=== PATIENT | female | born 1970 | race Caucasian/White ===

== ENCOUNTER 2016-09-24 21:28 | Observation (INO) | payer BC ==
[2016-09-24] MEDS ORDERED: Pepcid 20 MG VIAL IV ONE ×2 (21:52→22:09)
[2016-09-24] MEDS ORDERED: BABY ASPIRIN 81 MG CHEW PO ONE (21:52)
[2016-09-24] MEDS ORDERED: LOPRESSOR 5 MG/5 ML INJECTION IV ONE ×2 (21:52→22:09)
--- NOTE | 2016-09-24 21:56 | ERPHSYRPT ---
- History of Present Illness Time Seen by Provider: 09/24/16 21:40 Historian: patient Patient Subjective Stated Complaint: CP intermittently for awhile, worse tonight. Under left breast and left side of chest. Pt rates pain 10/10. Pt describes as sharp. Pt sts nausea with pain. Sts intermittent shortness of breath. Pt sts hot flashes. Denies dizziness, weakness. Sts recent sinus infection. Triage Nursing Assessment: Pt alert, oriented, answers all questions appropriately. Skin p/w/d, resps non-labored. Pt ambulatory to tx room, steady gait noted. Lung sounds CTA bilat, non-labored. Pt heart RRR, S1 S2 noted. No murmur, rub, or gallops noted. Physician History: CC: chest pain Hx: 46 y/o patient of Dr Marcos with hx of intermittent chest pains. She has had stress tests without evidence of cause. Scheduled for monitor. Today the chest pain is more frequent and last many minutes and was more severe. She came to ER. Sometimes nausea and short of breath during pain. Pain now better. No cough or fever. LMP 2 weeks ago. She takes HCTz and metoprolol every AM. Timing/Duration: intermittent Location: substernal (left chest) Severity of Pain-Max: moderate Severity of Pain-Current: none Aspirin Treatment Today: 81 mg x 1, provided by ED Allergies/Adverse Reactions: tramadol Allergy (Intermediate, Verified 09/24/16 21:35) Itching Home Medications: Metoprolol Tartrate 25 mg [Lopressor 25MG Tab] 25 mg PO DAILY 01/17/15 [ History] Omeprazole 20 MG [Prilosec 20 mg] 40 mg PO DAILY 01/17/15 [History] Potassium Chloride 20 Meq [Klor-Con 20 MEQ] 40 meq PO DAILY 07/27/15 [History] Aspirin 81 mg PO DAILY 01/25/16 [History] Naproxen 500 mg PO BID 09/24/16 [History] Hx Tetanus, Diphtheria Vaccination/Date Given: No Hx Influenza Vaccination/Date Given: No Hx Pneumococcal Vaccination/Date Given: No Immunizations Up to Date: No - Review of Systems Constitutional: No Fever, No Chills Eyes: No Symptoms Ears, Nose, & Throat: No Symptoms Respiratory: No Cough, No Dyspnea Cardiac: Chest Pain, No Edema, No Palpitations, No Syncope Abdominal/Gastrointestinal: Nausea, No Abdominal Pain, No Vomiting, No Diarrhea Genitourinary Symptoms: No Symptoms Musculoskeletal: No Symptoms Skin: No Symptoms Neurological: No Symptoms All Other Systems: Reviewed and Negative - Past Medical History Pertinent Past Medical History: Yes Neurological History: No Pertinent History ENT History: No Pertinent History Cardiac History: Hypertension Respiratory History: No Pertinent History Endocrine Medical History: Other Musculoskeletal History: No Pertinent History GI Medical History: GERD, Irritable Bowel History: Other Psycho-Social History: No Pertinent History Female Reproductive Disorders: No Pertinent History Other Medical History: herniated disc lower back - Past Surgical History Past Surgical History: Yes Neuro Surgical History: No Pertinent History Cardiac: No Pertinent History Respiratory: No Pertinent History Gastrointestinal: Cholecystectomy Genitourinary: No Pertinent History Musculoskeletal: No Pertinent History Female Surgical History: Section, Tubal Ligation - Social History Smoking Status: Never smoker Exposure to second hand smoke: No Drug Use: none 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) Significant Family History: heart disease (father) - Female History Hx Last Menstrual Period: 2 weeks ago Hx Now: No - Nursing Vital Signs Temperature: 98.5 F Temperature Source: Oral Pulse Rate: 93 Respiratory Rate: 18 Blood Pressure: 165/109 Pain Intensity: 10 - Physical Exam General Appearance: alert Eye Exam: PERRL/EOMI Ears, Nose, Throat Exam: normal ENT inspection, moist mucous membranes Neck Exam: normal inspection, non-tender, supple Respiratory Exam: normal breath sounds, lungs clear Cardiovascular Exam: regular rate/rhythm, No murmur Gastrointestinal/Abdomen Exam: soft, No tenderness, No distention Back Exam: normal inspection, normal range of motion Extremity Exam: normal inspection, normal range of motion Neurologic Exam: alert, oriented x 3, cooperative, sensation nml, No motor deficits Skin Exam: warm, dry, No rash SpO2 Interpretation: normal SpO2: 96 Oxygen Delivery: Room Air - Course Nursing assessment & vital signs reviewed: Yes EKG Interpreted by Me: RATE (80), Sinus Rhythm, NORMAL AXIS, NORMAL INTERVALS, NORMAL QRS, Non-specific ST Changes (unchanged from prior tracing) - Radiology Exams cxr X-ray Interpretation: Interpreted by me, Reviewed by me (CM, poor inspiration, no acute) Ordered Tests: Active Orders 24 hr Category Date Time Status Nanotechnician STAT Care 09/24/16 21:52 Active EKG-ER Only STAT Care 09/24/16 21:49 Active EKG-ER Only STAT Care 09/24/16 22:14 Active IV Insertion STAT Care 09/24/16 21:49 Active Pulse Oximetry (ED) STAT Care 09/24/16 21:52 Active CHEST 1 VIEW (PORTABLE) Stat Exams 09/24/16 21:52 Taken CBC W DIFF Stat Lab 09/24/16 21:57 Completed CMP Stat Lab 09/24/16 21:57 Completed D-DIMER QUANTITATION Stat Lab 09/24/16 21:57 Completed HCG QUALITATIVE,SERUM Stat Lab 09/24/16 21:57 Completed TROPONIN Q3H Lab 09/24/16 21:57 Completed TROPONIN Q3H Lab 09/25/16 01:00 Ordered TROPONIN Q3H Lab 09/25/16 04:00 Ordered TROPONIN Q3H Lab 09/25/16 07:00 Ordered TROPONIN Q3H Lab 09/25/16 10:00 Ordered Medication Summary Generic Name Dose Route Start Last Admin Trade Name Freq PRN Reason Stop Dose Admin Sodium Chloride 1,000 mls @ 100 mls/hr 09/24/16 22:00 09/24/16 22:14 Sodium Chloride 0.9% 1000 Ml IV 10/24/16 21:59 100 mls/hr .Q10H REYNA Administration Discontinued Medications Generic Name Dose Route Start Last Admin Trade Name Freq PRN Reason Stop Dose Admin Aspirin 81 mg 09/24/16 21:52 09/24/16 22:17 Baby Aspirin 81 Mg Chew PO 09/24/16 21:53 81 mg STAT ONE Administration Aspirin Confirm 09/24/16 22:09 Baby Aspirin 81 Mg Chew Administered 09/24/16 22:10 Dose 81 mg .ROUTE .STK-MED ONE Famotidine 20 mg 09/24/16 21:52 09/24/16 22:18 Pepcid 20 Mg Vial IV 09/24/16 21:53 20 mg STAT ONE Administration Famotidine Confirm 09/24/16 22:09 Pepcid 20 Mg Vial Administered 09/24/16 22:10 Dose 20 mg IV .STK-MED ONE Sodium Chloride Confirm 09/24/16 22:09 Sodium Chloride 0.9% 1000 Ml Administered 09/24/16 22:10 Dose 1,000 mls @ ud .ROUTE .STK-MED ONE Metoprolol Tartrate 5 mg 09/24/16 21:52 09/24/16 22:20 Lopressor 5 Mg/5 Ml Injection IV 09/24/16 21:53 5 mg STAT ONE Administration Metoprolol Tartrate Confirm 09/24/16 22:09 Lopressor 5 Mg/5 Ml Injection Administered 09/24/16 22:10 Dose 5 mg IV .STK-MED ONE Nitroglycerin 1 gm 09/24/16 22:14 09/24/16 22:24 Nitro-Bid 2% Ud Packets TOP 09/24/16 22:15 1 gm STAT ONE Administration Nitroglycerin Confirm 09/24/16 22:23 Nitro-Bid 2% Ud Packets Administered 09/24/16 22:24 Dose 1 gm .ROUTE .STK-MED ONE Lab/Rad Data: Laboratory Result Diagrams 09/24/16 21:57 09/24/16 21:57 Laboratory Results 09/24/16 09/24/16 09/24/16 Range/Units 21:57 21:57 21:57 WBC (4.0-10.5) K/mm3 RBC (4.1-5.4) M/mm3 Hgb (12.0-16.0) gm/dl Hct (35-47) % MCV (78-100) fl MCH (26-32) pg MCHC (32-36) g/dl RDW (11.5-14.0) % Plt Count (150-450) K/mm3 MPV (6-9.5) fl Gran % (36.0-66.0) % Lymphocytes % (24.0-44.0) % Monocytes % (0.0-12.0) % Eosinophils % (0.00-5.0) % Basophils % (0.0-0.4) % Basophils # (0-0.4) D-Dimer 0.250 (0.00-0.49) mg/L Sodium (136-145) mEq/L Potassium (3.5-5.1) mEq/L Chloride (98-107) mEq/L Carbon Dioxide (21-32) mEq/L Anion Gap (5-15) MEQ/L BUN (9-20) mg/dL Creatinine (0.55-1.30) mg/dl Estimated GFR ML/MIN Glucose (70-110) MG/DL Calcium (8.5-10.1) mg/dL Total Bilirubin (0.2-1.0) mg/dL AST (15-37) U/L ALT (12-78) U/L Alkaline Phosphatase (46-116) U/L Troponin I < 0.017 (0.000-0.056) ng/ml Serum Total Protein (6.4-8.2) gm/dL Albumin (3.4-5.0) g/dL Serum , Qual NEGATIVE (Negative) 09/24/16 09/24/16 Range/Units 21:57 21:57 WBC 14.7 H (4.0-10.5) K/mm3 RBC 5.13 (4.1-5.4) M/mm3 Hgb 14.1 (12.0-16.0) gm/dl Hct 42.3 (35-47) % MCV 82.5 (78-100) fl MCH 27.5 (26-32) pg MCHC 33.3 (32-36) g/dl RDW 13.4 (11.5-14.0) % Plt Count 403 (150-450) K/mm3 MPV 11.2 H (6-9.5) fl Gran % 61.9 (36.0-66.0) % Lymphocytes % 30.1 (24.0-44.0) % Monocytes % 6.8 (0.0-12.0) % Eosinophils % 0.8 (0.00-5.0) % Basophils % 0.4 (0.0-0.4) % Basophils # 0.06 (0-0.4) D-Dimer (0.00-0.49) mg/L Sodium 138 (136-145) mEq/L Potassium 3.1 L (3.5-5.1) mEq/L Chloride 100 (98-107) mEq/L Carbon Dioxide 29.7 (21-32) mEq/L Anion Gap 11.2 (5-15) MEQ/L BUN 14 (9-20) mg/dL Creatinine 1.22 (0.55-1.30) mg/dl Estimated GFR 50 ML/MIN Glucose 113 H (70-110) MG/DL Calcium 9.0 (8.5-10.1) mg/dL Total Bilirubin 0.3 (0.2-1.0) mg/dL AST 20 (15-37) U/L ALT 27 (12-78) U/L Alkaline Phosphatase 91 (46-116) U/L Troponin I (0.000-0.056) ng/ml Serum Total Protein 7.8 (6.4-8.2) gm/dL Albumin 3.4 (3.4-5.0) g/dL Serum , Qual (Negative) - Progress Progress Note: 09/24/16 22:49 Pt initially had no pain then had level 9 pain. REpeat EKG with minimal changes. Troponin negative. ASA and NTG paste given. BP better so metoprolol not yet given. 09/24/16 22:54 Pain better now. NTG paste on. ?coronary spasms. Called Dr Juarez. Will place in chest pain obs for serial troponin and further care. Counseled pt/family regarding: lab results, diagnosis, need for follow-up, rad results - Departure Time of Disposition: 22:54 Departure Disposition: Observation Clinical Impression: Chest pain, rule out acute myocardial infarction Condition: Stable Critical Care Time: No Referrals: GWYN JUAREZ MD [Primary Care Provider] - Instructions: Atypical Chest Pain
[2016-09-24] MEDS ORDERED: Sodium Chloride 0.9% 1000 ML 1,000 ML IV SCH (22:00)
[2016-09-24 22:02] LABS: BASOPHIL % 0.4 % (0.0-0.4); Eosinophil % 0.8 % (0.00-5.0); Granulocytes % 61.9 % (36.0-66.0); Lymphocytes % 30.1 % (24.0-44.0); Mean Cell Volume 82.5 fl (78-100); Mean Corpuscular Hemoglobin 27.5 pg (26-32); Mean Platelet Volume 11.2 fl (6-9.5); Monocytes % 6.8 % (0.0-12.0); Platelet Count 403 K/mm3 (150-450); Red Blood Count 5.13 M/mm3 (4.1-5.4); Red Cell Distribution Width 13.4 % (11.5-14.0); White Blood Count 14.7 K/mm3 (4.0-10.5)
[2016-09-24] MEDS ORDERED: Sodium Chloride 0.9% 1000 ML 1,000 ML ONE (22:09)
[2016-09-24] MEDS ORDERED: BABY ASPIRIN 81 MG CHEW ONE (22:09)
[2016-09-24] MEDS ORDERED: NITRO-BID 2% UD PACKETS TOP ONE (22:14)
[2016-09-24 22:21] LABS: ALBUMIN 3.4 g/dL (3.4-5.0); ANION GAP 11.2 MEQ/L (5-15); BILIRUBIN,TOTAL 0.3 mg/dL (0.2-1.0); Carbon Dioxide 29.7 mEq/L (21-32); Potassium 3.1 mEq/L (3.5-5.1); Total Protein 7.8 gm/dL (6.4-8.2)
[2016-09-24] MEDS ORDERED: NITRO-BID 2% UD PACKETS ONE (22:23)
[2016-09-24] MEDS ORDERED: MAALOX ES 30 ML UNIT DOSE PO PRN (23:25)
[2016-09-24] MEDS ORDERED: Senokot-S Tablet PO PRN (23:25)
[2016-09-24] MEDS ORDERED: MILK OF MAGNESIA 30 ML PO PRN (23:25)
[2016-09-24] MEDS ORDERED: Zofran 4 MG/2 ML VIAL IV PRN (23:25)
[2016-09-24] MEDS: D5w/0.45NS W/ 40MEQ KCl 1000 Ml 1,000 ML IV SCH (23:42)
[2016-09-25] MEDS: TYLENOL 325 MG PO PRN ×3 (03:50→14:48)
[2016-09-25] MEDS: NITRO-BID 2% UD PACKETS TOP SCH ×2 (05:59→14:45)
[2016-09-25] MEDS: D5w/0.45NS W/ 40MEQ KCl 1000 Ml 1,000 ML IV SCH ×2 (08:02→16:18)
--- NOTE | 2016-09-25 08:17 | PCM.HP ---
History of Present Illness - Chief Complaint Chief Complaint: CHEST PAIN R/O History of Present Illness: is a 46 year old female who has had recurrent chest pain for the last 2 months. She is currently seeing Dr Canas and actually has a followup visit scheduled in 2 days. She has recrurrent sharp substernal chest pain, there is no change with a cough or deep breath. She experiences nausea and diaphoresis, she has these nearly every day but last night the pain was much more intense so she came to the ER. She does take naproxen regularly for her back and is also on omeprazole. She had a negative stress test last month. - Review of Systems Constitutional: No Fever, No Chills Respiratory: No Cough, No Short Of Breath Cardiac: Chest Pain Abdominal/Gastrointestinal: No Abdominal Pain, No Nausea, No Vomiting, No Diarrhea Skin: No Rash All Other Systems: Reviewed and Negative Medications & Allergies Home Medications: Home Medication List Hydrochlorothiazide 25 mg [hydroDIURIL 25 MG] 25 mg PO DAILY #0 tablet [Rx Confirmed 09/24/16] Metoprolol Tartrate 25 mg [Lopressor 25MG Tab] 25 mg PO DAILY 01/17/15 [ History Confirmed 09/24/16] Omeprazole 20 MG [Prilosec 20 mg] 40 mg PO DAILY 01/17/15 [History Confirmed 11/09] Potassium Chloride 20 Meq [Klor-Con 20 MEQ] 40 meq PO DAILY 07/27/15 [History Confirmed 09/24/16] Aspirin 81 mg PO DAILY 01/25/16 [History Confirmed 09/24/16] Naproxen 500 mg PO BID 09/24/16 [History Confirmed 09/24/16] Allergies/Adverse Reactions: Allergies Allergy/AdvReac Type Severity Reaction Status Date / Time tramadol Allergy Intermediate Itching Verified 09/24/16 21:35 - Past Medical History Past Medical History: Yes Neurological History: No Pertinent History, Other ENT History: No Pertinent History Cardiac History: Angina, Hypertension Respiratory History: No Pertinent History Endocrine Medical History: Other Musculoskelatal History: No Pertinent History GI Medical History: GERD History: Other Pyscho-Social History: No Pertinent History Reproductive Disorders: No Pertinent History Comment: herniated disc lower back, steroid epidural inj for back pain - Female History Hx Last Menstrual Period: 2 weeks ago Are you now?: No - Past Surgical History Past Surgical History: Yes Neuro Surgical History: No Pertinent History Cardiac History: No Pertinent History Respiratory Surgery: No Pertinent History GI Surgical History: Cholecystectomy Genitourinary Surgical Hx: No Pertinent History Musculskeletal Surgical Hx: No Pertinent History Female Surgical History: Section, Tubal Ligation - Social History Smoking Status: Never smoker Exposure to second hand smoke: No Alcohol: None Drug Use: none Significant Family History: heart disease (father) - Physical Exam Vital Signs: Vital Signs - 24 hr Temp Pulse Resp BP BP Pulse Ox 09/25/16 07:05 98.0 F 75 18 155/85 97 09/25/16 04:00 97.8 F 73 18 115/58 96 09/24/16 23:54 98.0 F 81 20 171/97 95 09/24/16 22:57 78 16 145/97 96 09/24/16 22:55 98.5 F 93 H 18 165/109 96 09/24/16 22:21 78 16 150/98 98 09/24/16 22:07 97 09/24/16 21:39 98.5 F 93 H 18 165/109 96 General Appearance: no apparent distress, alert Neurologic Exam: alert, oriented x 3, cooperative, normal mood/affect, nml cerebellar function, nml station & gait, sensation nml, No motor deficits Eye Exam: PERRL/EOMI, eyes nml inspection Respiratory Exam: normal breath sounds, lungs clear, No respiratory distress Cardiovascular Exam: regular rate/rhythm, normal heart sounds, normal peripheral pulses Gastrointestinal/Abdomen Exam: soft, normal bowel sounds, No tenderness, No mass Extremity Exam: normal inspection, normal range of motion, pelvis stable Skin Exam: normal color, warm, dry, No rash Results - Labs Lab/Micro Results: Lab Results-Last 24 Hours 09/25/16 09/25/16 09/25/16 Range/Units 01:15 03:47 06:30 Troponin I < 0.017 < 0.017 < 0.017 (0.000-0.056) ng/ml Triglycerides (30-200) mg/dL Cholesterol (100-200) mg/dL LDL Cholesterol (5-99) mg/dL HDL Cholesterol (35-60) mg/dL Heart Disease Risk Ratio 09/25/16 Range/Units 06:30 Troponin I (0.000-0.056) ng/ml Triglycerides 165 (30-200) mg/dL Cholesterol 187 (100-200) mg/dL LDL Cholesterol 107 H (5-99) mg/dL HDL Cholesterol 60 (35-60) mg/dL Heart Disease Risk Ratio 3.1 - Other Procedures and Tests Respiratory Therapy 09/26/16 05:00 EKG ROUTINE 09/27/16 05:00 EKG ROUTINE 09/28/16 05:00 EKG ROUTINE Assessment/Plan (1) Chest pain Current Visit: No Status: Acute Assessment & Plan: cardiac enzymes are negative thus far, doesn't sound cardiac but has some worrisome features. will consult [facility] for further recommendations if rules out. certainly has improved her pain with nitro in ER and with nitro patch there has been much less intense pain when she has these bouts overnight Code(s): R07.9 - CHEST PAIN, UNSPECIFIED (2) GERD (gastroesophageal reflux disease) Current Visit: No Status: Acute Code(s): K21.9 - GASTRO-ESOPHAGEAL REFLUX DISEASE WITHOUT ESOPHAGITIS (3) Hypokalemia Current Visit: No Status: Acute Assessment & Plan: replacing her potassium in IV fluids at this time, will repeat mg and K level with last troponin Code(s): E87.6 - HYPOKALEMIA
--- NOTE | 2016-09-25 08:39 | XRAY ---
Indication: Chest pain and short of breath. Comparison: January 02, 2016 Portable chest remains slightly underinflated accentuating the cardiopulmonary structures. No focal infiltrate, consolidation, or large effusion. Heart is not enlarged for AP portable technique. Bony thorax intact. Impression: Stable nonacute underinflated chest.
[2016-09-25] MEDS ORDERED: Pepcid 20 MG VIAL IV SCH (10:00)
[2016-09-25] MEDS ORDERED: NON-FORMULARY ITEM (Potassium Chloride 20 Meq [Klor-Con 20 Meq] 40 MEQ) PO SCH (10:00)
[2016-09-25] MEDS ORDERED: Ecotrin 325 MG PO SCH (10:00)
[2016-09-25] MEDS ORDERED: ECOTRIN 81 MG PO SCH (10:00)
[2016-09-25] MEDS ORDERED: hydroDIURIL 25 MG PO SCH (10:00)
[2016-09-25] MEDS ORDERED: Klor Con 10 MEQ PO SCH (10:00)
[2016-09-25] MEDS ORDERED: Lopressor 25MG Tab PO SCH (10:00)
[2016-09-25] MEDS ORDERED: NON-FORMULARY ITEM (Omeprazole 20 Mg [Prilosec 20 Mg] 40 MG) PO SCH (10:00)
[2016-09-25] MEDS ORDERED: Protonix 40MG Tablet PO SCH (10:00)
[2016-09-25 10:58] LABS: BLOOD UREA NITROGEN 22 mg/dL (9-20); CHLORIDE 106 mEq/L (98-107); Carbon Dioxide 27.7 mEq/L (21-32); Glucose 120 MG/DL (70-110); MAGNESIUM 2.1 mg/dL (1.8-2.4); SODIUM 143 mEq/L (136-145)
[2016-09-25 16:08] VITALS: BP 125/79; PULSE 72; O2SAT 97
== END 2016-09-25 19:02 | disposition home or self-care (01) ==
LOC: ED 21:28 → MED SURG 23:08
PROVIDERS: ADMIT Family Medicine; ATTEND Family Medicine
DX: R07.9 Chest pain, unspecified (principal); K21.9 Gastro-esophageal reflux disease without esophagitis; E87.6 Hypokalemia; I10 Essential (primary) hypertension
CPT/HCPCS: 36000; 36415; 71010; 80048; 80053; 80061; 83721; 83735; 84484; 84703; 85025; 85379; 93005; 93041; 93268; 94760; 96360; 99284; G0378; J2405; Q3014

== ENCOUNTER 2017-03-15 07:52 | Emergency (ER) | payer BC ==
[2017-03-15] MEDS ORDERED: BABY ASPIRIN 81 MG CHEW PO ONE (08:10)
[2017-03-15] MEDS ORDERED: BABY ASPIRIN 81 MG CHEW ONE (08:13)
--- NOTE | 2017-03-15 08:18 | ERPHSYRPT ---
- History of Present Illness Time Seen by Provider: 03/15/17 08:02 Historian: patient Exam Limitations: no limitations Patient Subjective Stated Complaint: PT REPORTS NONRADIATING CHEST PAIN BEGINNING JAY 3 DAYS AGO-DENIES SOB-DENIES COUGH-STATES SHE HAS HAD SIMILAR EPISODES IN THE PAST Triage Nursing Assessment: PT PINK WARM ET [id number] EASY ET NONLABORED- RIGHT RADIAL PULSE REGULAR ET STRONG-CAP REFILL 3 SECONDS Physician History: 47-year-old white female who has been seen in the past secondary to chest pain and states she has had a normal catheterization in November arrives with complaint of intermittent chest pain located inferior to her left breast described as sharp lasting a few minutes going off-and-on for last 2-3 days she states she hasn't last night at 11:00 it went away then this morning at 6:00 he began pain is described as sharp underneath her left breast radiating to her back not associated with movement or deep breathing she stated that she had some nausea associated with this no shortness of breath. She took 1 baby aspirin at home. Past medical history includes GERD, irritable bowel, herniated disc, high blood pressure/ Past surgical history includes cardiac catheter cholecystectomy tubal ligation. Timing/Duration: other (symptoms for 2-3 days intermittently occured last pm at 11:00 p.m., went away came back this morning at 6 AM) Quality: sharpness Location: other (left chest radiating to back) Severity of Pain-Max: moderate Severity of Pain-Current: mild Modifying Factors: Improves With: nothing Associated Symptoms: nausea, No vomiting, No palpitations, No heartburn, No abdominal pain, No shortness of breath, No cough, No hurts to breathe, No diaphoresis, No chills, No fever, No fatigue, No weakness, No swelling/lump in chest, No syncope, No rash, No headache, No dizziness, No edema, No back pain Prior Chest Pain/Cardiac Workup: cardiac cath (patient with normal cardiac catheterization in November 2016) Nitro Today/Relief: no nitro taken today Aspirin Treatment Today: 81 mg x 1 (81 mg at home), 81 mg x 3 (243 mg in the ER) , provided at home, provided by ED Allergies/Adverse Reactions: tramadol Allergy (Intermediate, Verified 03/15/17 07:59) Itching Home Medications: Metoprolol Tartrate 25 mg [Lopressor 25MG Tab] 25 mg PO DAILY 01/17/15 [ History] Omeprazole 20 MG [Prilosec 20 mg] 40 mg PO DAILY 01/17/15 [History] Potassium Chloride 20 Meq [Klor-Con 20 MEQ] 40 meq PO DAILY 07/27/15 [History] Aspirin 81 mg PO DAILY 01/25/16 [History] Naproxen 500 mg PO BID 09/24/16 [History] Amlodipine Besylate [Norvasc] 2.5 mg PO DAILY 03/15/17 [History] Hx Tetanus, Diphtheria Vaccination/Date Given: No Hx Influenza Vaccination/Date Given: No Hx Pneumococcal Vaccination/Date Given: No Immunizations Up to Date: Yes - Review of Systems Constitutional: No Fever, No Chills Eyes: No Symptoms Ears, Nose, & Throat: No Symptoms Respiratory: No Cough, No Dyspnea Cardiac: Chest Pain Abdominal/Gastrointestinal: Nausea, No Abdominal Pain, No Vomiting, No Diarrhea , No Constipation, No Hematemesis, No Hematochezia, No Melena, No Dysphagia, No Appetite Changes Genitourinary Symptoms: No Dysuria Musculoskeletal: No Back Pain, No Neck Pain Skin: No Rash Neurological: No Dizziness, No Focal Weakness, No Sensory Changes Psychological: No Symptoms Endocrine: No Symptoms All Other Systems: Reviewed and Negative - Past Medical History Pertinent Past Medical History: Yes Neurological History: No Pertinent History, Other ENT History: No Pertinent History Cardiac History: Angina, Hypertension Respiratory History: No Pertinent History Endocrine Medical History: Other Musculoskeletal History: No Pertinent History GI Medical History: GERD History: Other Psycho-Social History: No Pertinent History Female Reproductive Disorders: No Pertinent History Other Medical History: herniated disc lower back, steroid epidural inj for back pain - Past Surgical History Past Surgical History: Yes Neuro Surgical History: No Pertinent History Cardiac: Cardiac Catheterization Respiratory: No Pertinent History Gastrointestinal: Cholecystectomy Genitourinary: No Pertinent History Musculoskeletal: No Pertinent History Female Surgical History: Section, Tubal Ligation - Social History Smoking Status: Never smoker Exposure to second hand smoke: No Drug Use: none Patient Lives Alone: No Significant Family History: heart disease (father) - Female History Hx Now: No - Nursing Vital Signs Nursing Vital Signs: Initial Vital Signs Temperature 98.8 F Temperature Source Oral Pulse Rate [] 90 Pulse Rate 74 Respiratory Rate 18 Blood Pressure [] 134/91 Pain Intensity 8 - Physical Exam General Appearance: no apparent distress, alert Eye Exam: PERRL/EOMI, eyes nml inspection Ears, Nose, Throat Exam: normal ENT inspection, moist mucous membranes Neck Exam: normal inspection, non-tender, supple, full range of motion Respiratory Exam: normal breath sounds, lungs clear, No respiratory distress Cardiovascular Exam: regular rate/rhythm, normal heart sounds Gastrointestinal/Abdomen Exam: soft, No tenderness, No mass Back Exam: normal inspection, No CVA tenderness, No vertebral tenderness Extremity Exam: normal inspection, normal range of motion Neurologic Exam: alert, oriented x 3, cooperative, normal mood/affect, sensation nml, No motor deficits Skin Exam: normal color, warm, dry SpO2 Interpretation: normal (97%) SpO2: 97 Oxygen Delivery: Room Air - Course Nursing assessment & vital signs reviewed: Yes EKG Interpreted by Me: RATE (68 bpm), Sinus Rhythm, Other (EKG sinus rhythm, 68 bpm, axisSI/QIII pattern, Q waves in lead 3, no acute ST or T wave changes noted , no acute changes as compared to September 25, 2016) - Radiology Exams Chest X-ray Interpretation: Reviewed by me, Other (chest x-ray:impression: 1. Mildly hypoinflated chest with chronic mild elevation/eventration of the right hemidiaphragm . 2. Focal bronchovascula lung markings crowding versus minimal atelectasis within the right infrahilar projection, apparently due to the underinflated chest and mild elevation of the right hemidiaphragm on this side 3. No airspace infiltrates or other acute cardiopulmonary disease is seen.) Ordered Tests: Active Orders 24 hr Category Date Time Status Barrel Turner STAT Care 03/15/17 08:10 Active EKG-ER Only STAT Care 03/15/17 08:10 Active EKG-ER Only STAT Care 03/15/17 10:28 Active IV Insertion STAT Care 03/15/17 08:10 Active Pulse Oximetry (ED) STAT Care 03/15/17 08:10 Active CHEST 1 VIEW (PORTABLE) Stat Exams 03/15/17 08:10 Completed AMYLASE Stat Lab 03/15/17 08:00 Completed CBC W DIFF Stat Lab 03/15/17 08:00 Completed CMP Stat Lab 03/15/17 08:00 Completed D-DIMER QUANTITATION Stat Lab 03/15/17 08:00 Completed LIPASE Stat Lab 03/15/17 08:00 Completed TROPONIN Q3H Lab 03/15/17 08:00 Completed TROPONIN Q3H Lab 03/15/17 11:10 Completed TROPONIN Q3H Lab 03/15/17 14:15 Ordered TROPONIN Q3H Lab 03/15/17 17:15 Ordered TROPONIN Q3H Lab 03/15/17 20:15 Ordered Medication Summary Discontinued Medications Generic Name Dose Route Start Last Admin Trade Name Jemq PRN Reason Stop Dose Admin Aspirin 243 mg 03/15/17 08:10 03/15/17 08:14 Baby Aspirin 81 Mg Chew PO 03/15/17 08:11 243 mg STAT ONE Administration Aspirin Confirm 03/15/17 08:13 Baby Aspirin 81 Mg Chew Administered 03/15/17 08:14 Dose 243 mg .ROUTE .STK-MED ONE Morphine Sulfate 4 mg 03/15/17 10:02 03/15/17 10:05 Morphine Sulfate 4 Mg Inj IV 03/15/17 10:03 4 mg STAT ONE Administration Morphine Sulfate Confirm 03/15/17 10:04 Morphine Sulfate 4 Mg Inj Administered 03/15/17 10:05 Dose 4 mg .ROUTE .STK-MED ONE Ondansetron HCl Confirm 03/15/17 08:49 Zofran 4 Mg/2 Ml Vial Administered 03/15/17 08:50 Dose 4 mg .ROUTE .STK-MED ONE Ondansetron HCl 4 mg 03/15/17 09:07 03/15/17 09:07 Zofran 4 Mg/2 Ml Vial IV 03/15/17 09:08 4 mg STAT ONE Administration Potassium Chloride 40 meq 03/15/17 09:04 03/15/17 09:09 Klor Con 10 Meq PO 03/15/17 09:05 40 meq STAT ONE Administration Potassium Chloride Confirm 03/15/17 09:09 Klor Con 10 Meq Administered 03/15/17 09:10 Dose 40 meq PO .STK-MED ONE Lab/Rad Data: Laboratory Result Diagrams 03/15/17 08:00 03/15/17 08:00 Laboratory Results 03/15/17 03/15/17 03/15/17 Range/Units 11:10 08:00 08:00 WBC (4.0-10.5) K/mm3 RBC (4.1-5.4) M/mm3 Hgb (12.0-16.0) gm/dl Hct (35-47) % MCV (78-100) fl MCH (26-32) pg MCHC (32-36) g/dl RDW (11.5-14.0) % Plt Count (150-450) K/mm3 MPV (6-9.5) fl Gran % (36.0-66.0) % Lymphocytes % (24.0-44.0) % Monocytes % (0.0-12.0) % Eosinophils % (0.00-5.0) % Basophils % (0.0-0.4) % Basophils # (0-0.4) D-Dimer (0.00-500.00) ng/mL Sodium (136-145) mEq/L Potassium (3.5-5.1) mEq/L Chloride (98-107) mEq/L Carbon Dioxide (21-32) mEq/L Anion Gap (5-15) MEQ/L BUN (9-20) mg/dL Creatinine (0.55-1.30) mg/dl Estimated GFR ML/MIN Glucose (70-110) MG/DL Calcium (8.5-10.1) mg/dL Total Bilirubin (0.2-1.0) mg/dL AST (15-37) U/L ALT (12-78) U/L Alkaline Phosphatase (46-116) U/L Troponin I < 0.017 < 0.017 (0.000-0.056) ng/ml Serum Total Protein (6.4-8.2) gm/dL Albumin (3.4-5.0) g/dL Amylase 11 L (25-115) U/L Lipase 103 (73-393) U/L 03/15/17 03/15/17 03/15/17 Range/Units 08:00 08:00 08:00 WBC 8.5 (4.0-10.5) K/mm3 RBC 5.12 (4.1-5.4) M/mm3 Hgb 14.0 (12.0-16.0) gm/dl Hct 41.9 (35-47) % MCV 81.8 (78-100) fl MCH 27.3 (26-32) pg MCHC 33.4 (32-36) g/dl RDW 13.6 (11.5-14.0) % Plt Count 327 (150-450) K/mm3 MPV 11.3 H (6-9.5) fl Gran % 56.4 (36.0-66.0) % Lymphocytes % 30.6 (24.0-44.0) % Monocytes % 6.4 (0.0-12.0) % Eosinophils % 6.0 H (0.00-5.0) % Basophils % 0.6 (0.0-0.4) % Basophils # 0.05 (0-0.4) D-Dimer 288.37 (0.00-500.00) ng/mL Sodium 142 (136-145) mEq/L Potassium 3.1 L (3.5-5.1) mEq/L Chloride 103 (98-107) mEq/L Carbon Dioxide 26.0 (21-32) mEq/L Anion Gap 16.1 H (5-15) MEQ/L BUN 13 (9-20) mg/dL Creatinine 0.76 (0.55-1.30) mg/dl Estimated GFR > 60 ML/MIN Glucose 140 H (70-110) MG/DL Calcium 8.7 (8.5-10.1) mg/dL Total Bilirubin 0.50 (0.2-1.0) mg/dL AST 23 (15-37) U/L ALT 43 (12-78) U/L Alkaline Phosphatase 78 (46-116) U/L Troponin I (0.000-0.056) ng/ml Serum Total Protein 7.4 (6.4-8.2) gm/dL Albumin 3.7 (3.4-5.0) g/dL Amylase (25-115) U/L Lipase (73-393) U/L - Progress Progress: improved Progress Note: 03/15/17 12:23 This is a 47-year-old white female with history of GERD irritable bowel herniated disc back pain Who has had a history of cardiac chest pain in the past she has had a normal cardiac catheterization in September. She presented to this emergency room with complaint of intermittent pain in her left chest inferiorly and anteriorly which is sharp not associated with deep breathing associated with some nausea. She stated that this occurred yesterday at 11:00 PM went away patient went to bed woke up and the pain was there at 6:00 this morning she presented to the emergency room patient had normal vitals patient's EKG showed normal sinus rhythm 68 bpm there was a Q-wave in lead 3 otherwise essentially normal Patient's chest x-ray was unremarkable patient's chemistry was remarkable for a potassium of 3.1 otherwise essentially normal troponin was normal. Patient was given morphine for pain she was given aspirin. Patient had a second EKG which was normal and a repeat troponin which was normal. Patient was given 40 mEq of potassium. Patient stated that she still has some sharp pain in her right chest d-dimer had been normal as well. Case was discussed with Dr. Prieto he felt like this was most likely noncardiac chest pain and felt patient could probably go home however he stated his patient continued to complain of pain that case could be discussed with cardiology. I discussed the patient's case with Dr. Blair, who was on-call for Dr. Barnett the patient's track mechanic, And described the patient's presentation vitals x-rays EKGs labs, He felt that the patient could be discharged, patient will be given troponin 30 mg IV, Will plan to discharge patient will give patient a small amount of [place] for pain, Patient is to return home rest, she is to follow-up with Dr. Barnett or Dr Prieto. , - Departure Time of Disposition: 12:28 Departure Disposition: Home Clinical Impression: Non-cardiac chest pain, Hypokalemia Condition: Fair Critical Care Time: No Additional Instructions: Return home. Rest. Plenty of fluids. [place] 5/325 #12 one orally every 4-6 hours as needed for pain. Follow-up with your family doctor or your track mechanic call and make an appointment. Return for acute distress or for severe symptoms. continue your Naprosyn as prescribed Prescriptions: Hydrocodone/Acetaminophen [[place] 5-325 Tablet] 1 tab PO Q4-6HPRN PRN #12 tablet PRN Reason: Pain
[2017-03-15 08:25] LABS: BASOPHIL % 0.6 % (0.0-0.4); Granulocytes % 56.4 % (36.0-66.0); Lymphocytes % 30.6 % (24.0-44.0); Mean Cell Volume 81.8 fl (78-100); Mean Corpuscular Hemoglobin 27.3 pg (26-32); Mean Platelet Volume 11.3 fl (6-9.5); Monocytes % 6.4 % (0.0-12.0); Platelet Count 327 K/mm3 (150-450); Red Blood Count 5.12 M/mm3 (4.1-5.4); Red Cell Distribution Width 13.6 % (11.5-14.0); White Blood Count 8.5 K/mm3 (4.0-10.5)
[2017-03-15 08:36] LABS: LIPASE 103 U/L (73-393)
[2017-03-15 08:40] LABS: ALBUMIN 3.7 g/dL (3.4-5.0); ALKALINE PHOSPHATASE 78 U/L (46-116); ANION GAP 16.1 MEQ/L (5-15); BLOOD UREA NITROGEN 13 mg/dL (9-20); CHLORIDE 103 mEq/L (98-107); Glucose 140 MG/DL (70-110); Potassium 3.1 mEq/L (3.5-5.1); SGOT/AST 23 U/L (15-37); SGPT/ALT 43 U/L (12-78); SODIUM 142 mEq/L (136-145); Total Protein 7.4 gm/dL (6.4-8.2)
--- NOTE | 2017-03-15 08:43 | XRAY ---
Exam: AP upright portable chest film from 0815 hours on 03/15/2017. Comparison: AP upright portable chest film from 09/24/2016. Indication: Chest pain. Findings: The lungs are mildly hypoinflated with mild elevation of the right hemidiaphragm representing no change from 09/24/2016. The transverse heart size appears within normal limits for this AP portable technique. I believe there is some crowding of the bronchovascular structures versus minimal atelectatic changes within the right infrahilar projection. Otherwise, the lung matthews appear clear except for a stable calcified granuloma within the left lung apex. No pneumothorax, increased pulmonary vascularity, or pleural fluid is seen. The visualized bones appear intact. Impression: 1. Mildly hypoinflated chest with chronic mild elevation/eventration of the right hemidiaphragm. 2. Focal bronchovascular lung marking crowding versus minimal atelectasis within the right infrahilar projection, apparently due to the under inflated chest and mild elevation of the right hemidiaphragm on this side. 3. No air space infiltrates or other acute cardiopulmonary disease is seen.
[2017-03-15] MEDS ORDERED: Zofran 4 MG/2 ML VIAL ONE (08:49)
[2017-03-15] MEDS ORDERED: Klor Con 10 MEQ PO ONE ×2 (09:04→09:09)
[2017-03-15] MEDS ORDERED: Zofran 4 MG/2 ML VIAL IV ONE (09:07)
[2017-03-15] MEDS ORDERED: MORPHINE SULFATE 4 MG INJ IV ONE (10:02)
[2017-03-15] MEDS ORDERED: MORPHINE SULFATE 4 MG INJ ONE (10:04)
[2017-03-15 12:28] VITALS: O2SAT 97
[2017-03-15] MEDS ORDERED: TORAdol 30 mg Injection ONE (12:32)
[2017-03-15] MEDS: TORAdol 30 mg Injection IV ONE ×2 (12:33→12:37)
[2017-03-15 13:05] VITALS: BP 132/55; PULSE 88
== END 2017-03-15 13:04 | disposition home or self-care (01) ==
LOC: ED 07:52
DX: R07.89 Other chest pain (principal); E87.6 Hypokalemia; I10 Essential (primary) hypertension; K21.9 Gastro-esophageal reflux disease without esophagitis; K58.9 Irritable bowel syndrome, unspecified; Z79.899 Other long term (current) drug therapy
CPT/HCPCS: 36000; 36415; 71010; 80053; 82150; 83690; 84484; 85025; 85379; 93005; 93041; 96374; 96375; 99284; 99285; J1885; J2270; J2405; A9270-GY

== ENCOUNTER 2018-01-06 20:00 | Emergency (ER) | payer BC ==
[2018-01-06] MEDS ORDERED: Zofran 4 MG/2 ML VIAL IV ONE (20:49)
[2018-01-06] MEDS ORDERED: Sodium Chloride 0.9% 1000 ML 1,000 ML IV STA (20:49)
[2018-01-06] MEDS ORDERED: Hydromorphone 1 mg/ml Ampule IV ONE (20:49)
[2018-01-06] MEDS ORDERED: Zofran 4 MG/2 ML VIAL ONE (20:56)
[2018-01-06] MEDS ORDERED: Sodium Chloride 0.9% 1000 ML 1,000 ML ONE (20:56)
[2018-01-06] MEDS ORDERED: DILAUDID 2 MG INJECTION ONE (20:56)
--- NOTE | 2018-01-06 21:04 | ERPHSYRPT ---
- History of Present Illness Time Seen by Provider: 01/06/18 20:30 Historian: patient Exam Limitations: clinical condition Patient Subjective Stated Complaint: pt states she woke up this am with right anterior flank pain; shortly after she woke up she felt nauseated and vomited; states she has vomited twice today since onset of s/s; denies any radiating pain , non-tender on palpation; last vomited approx 1800. Triage Nursing Assessment: pt a&o x3; skin p, w, & d; ambulated to room per self ; no other distress or discomfort noted at this time; spouse at bedside. Physician History: PATIENT WITH A HISTORY OF CHRONIC URINARY TRACT INFECTION COMPLAINS OF RIGHT FLANK PAIN ONSET THIS AM RADIATES INTO RIGHT LOWER ABDOMEN. HAD EPISODE OF NAUSEA, DENIES URINARY SYMPTOMS, FEVER, CHILLS OR DIARRHEA. Timing/Duration: today Activities at Onset: none Quality: throbbing Abdominal Pain Onset Location: flank Pain Radiation: RLQ Severity of Pain-Max: moderate Severity of Pain-Current: moderate Modifying Factors: Improves With: position Associated Symptoms: diarrhea, fever/chills, vomiting Allergies/Adverse Reactions: tramadol Allergy (Intermediate, Verified 01/06/18 20:26) Itching Home Medications: Metoprolol Tartrate 25 mg [Lopressor 25MG Tab] 25 mg PO DAILY 01/17/15 [ History] Omeprazole 20 MG [Prilosec 20 mg] 40 mg PO DAILY 01/17/15 [History] Potassium Chloride 20 Meq [Klor-Con 20 MEQ] 40 meq PO DAILY 07/27/15 [History] Aspirin 81 mg PO DAILY 01/25/16 [History] Naproxen 500 mg PO BID 09/24/16 [History] Amlodipine Besylate [Norvasc] 2.5 mg PO DAILY 03/15/17 [History] Hx Tetanus, Diphtheria Vaccination/Date Given: No Hx Influenza Vaccination/Date Given: No Hx Pneumococcal Vaccination/Date Given: No Immunizations Up to Date: No - Review of Systems Constitutional: No Fever, No Chills Eyes: No Symptoms Ears, Nose, & Throat: No Symptoms Respiratory: No Symptoms, No Cough, No Dyspnea Cardiac: No Symptoms, No Chest Pain, No Edema, No Syncope Abdominal/Gastrointestinal: Abdominal Pain, No Nausea, No Vomiting, No Diarrhea Genitourinary Symptoms: Flank Pain Musculoskeletal: No Symptoms, No Back Pain, No Neck Pain Skin: No Rash Neurological: No Dizziness, No Focal Weakness, No Sensory Changes Psychological: No Symptoms Endocrine: No Symptoms All Other Systems: Reviewed and Negative - Past Medical History Pertinent Past Medical History: Yes Neurological History: No Pertinent History, Other ENT History: No Pertinent History Cardiac History: Angina, Hypertension Respiratory History: No Pertinent History Endocrine Medical History: Other Musculoskeletal History: No Pertinent History GI Medical History: GERD History: Other Psycho-Social History: No Pertinent History Female Reproductive Disorders: No Pertinent History Other Medical History: herniated disc lower back, steroid epidural inj for back pain - Past Surgical History Past Surgical History: Yes Neuro Surgical History: No Pertinent History Cardiac: Cardiac Catheterization Respiratory: No Pertinent History Gastrointestinal: Cholecystectomy Genitourinary: No Pertinent History Musculoskeletal: No Pertinent History Female Surgical History: Section, Tubal Ligation - Social History Smoking Status: Never smoker Exposure to second hand smoke: No Drug Use: none Patient Lives Alone: No Significant Family History: heart disease (father) - Female History Hx Last Menstrual Period: 01/02/2018 Hx Now: (UNKNOWN) - Nursing Vital Signs Nursing Vital Signs: Initial Vital Signs Temperature 97.4 F 01/06/18 20:16 Pulse Rate 92 H 01/06/18 20:16 Respiratory Rate 18 01/06/18 20:16 Blood Pressure 155/98 01/06/18 20:16 O2 Sat by Pulse Oximetry 98 01/06/18 20:16 Pain Scale Pain Intensity 8 - Physical Exam SpO2: 98 Oxygen Delivery: Room Air - CT Exams Abdomen/Pelvis CT Interpretation: Discussed w/radiologist, Normal Appendix (THERE IS A LEFT 2.5CM OVARIAN CYST) Ordered Tests: Active Orders 24 hr Category Date Time Status ABDOMEN AND PELVIS W/0 CONTRAS [CT] Stat Exams 01/06/18 20:50 Taken AMYLASE Stat Lab 01/06/18 21:27 Completed CBC W DIFF Stat Lab 01/06/18 21:27 Completed CMP Stat Lab 01/06/18 21:27 Completed CULTURE,URINE Stat Lab 01/06/18 20:50 Received HCG,QUALITATIVE URINE Stat Lab 01/06/18 Uncollected LIPASE Stat Lab 01/06/18 21:27 Completed UA W/ MICROSCOPIC Stat Lab 01/06/18 20:50 Completed Medication Summary Discontinued Medications Generic Name Dose Route Start Last Admin Trade Name Freq PRN Reason Stop Dose Admin Diphenhydramine HCl 50 mg 01/06/18 23:43 01/06/18 23:52 Benadryl 50 Mg/Ml IV 01/06/18 23:44 50 mg STAT ONE Administration Diphenhydramine HCl Confirm 01/06/18 23:46 Benadryl 50 Mg/Ml Administered 01/06/18 23:47 Dose 50 mg .ROUTE .STK-MED ONE Hydromorphone HCl 1 mg 01/06/18 20:49 01/06/18 21:25 Hydromorphone 1 Mg/Ml Ampule IV 01/06/18 20:50 1 mg STAT ONE Administration Hydromorphone HCl Confirm 01/06/18 20:56 Dilaudid 2 Mg Injection Administered 01/06/18 20:57 Dose 2 mg .ROUTE .STK-MED ONE Sodium Chloride 1,000 mls @ 500 mls/hr 01/06/18 20:49 01/06/18 21:21 Sodium Chloride 0.9% 1000 Ml IV 01/06/18 22:48 500 mls/hr .Q2H STA Administration Sodium Chloride Confirm 01/06/18 20:56 Sodium Chloride 0.9% 1000 Ml Administered 01/06/18 20:57 Dose 1,000 mls @ ud .ROUTE .STK-MED ONE Levofloxacin/Dextrose 500 mg in 100 mls @ 100 mls/hr 01/06/18 22:33 01/06/18 22:48 Levofloxacin 500mg/100ml D5w IV 01/06/18 23:32 100 mls/hr STAT STA Administration Ketorolac Tromethamine 30 mg 01/06/18 22:43 01/06/18 22:48 Toradol 30 Mg Injection IV 01/06/18 22:44 30 mg STAT ONE Administration Ketorolac Tromethamine Confirm 01/06/18 22:40 Toradol 30 Mg Injection Administered 01/06/18 22:41 Dose 30 mg .ROUTE .STK-MED ONE Methylprednisolone Sodium Succinate 125 mg 01/06/18 23:43 01/06/18 23:52 Solu-Medrol 125 Mg IV 01/06/18 23:44 125 mg STAT ONE Administration Methylprednisolone Sodium Succinate Confirm 01/06/18 23:46 Solu-Medrol 125 Mg Administered 01/06/18 23:47 Dose 125 mg .ROUTE .STK-MED ONE Ondansetron HCl 4 mg 01/06/18 20:49 01/06/18 21:20 Zofran 4 Mg/2 Ml Vial IV 01/06/18 20:50 4 mg STAT ONE Administration Ondansetron HCl Confirm 01/06/18 20:56 Zofran 4 Mg/2 Ml Vial Administered 01/06/18 20:57 Dose 4 mg .ROUTE .STK-MED ONE Lab/Rad Data: Laboratory Result Diagrams 01/06/18 21:27 01/06/18 21:27 Laboratory Results 01/06/18 01/06/18 01/06/18 Range/Units 21:27 21:27 20:50 WBC 9.2 (4.0-10.5) K/mm3 RBC 5.51 H (4.1-5.4) M/mm3 Hgb 15.0 (12.0-16.0) gm/dl Hct 44.3 (35-47) % MCV 80.4 (78-100) fl MCH 27.2 (26-32) pg MCHC 33.9 (32-36) g/dl RDW 13.2 (11.5-14.0) % Plt Count 367 (150-450) K/mm3 MPV 11.1 H (6-9.5) fl Gran % 58.1 (36.0-66.0) % Eos # (Auto) 0.16 (0-0.5) Absolute Lymphs (auto) 3.13 (1.0-4.6) Absolute Monos (auto) 0.52 (0.0-1.3) Lymphocytes % 34.1 (24.0-44.0) % Monocytes % 5.7 (0.0-12.0) % Eosinophils % 1.7 (0.00-5.0) % Basophils % 0.4 (0.0-0.4) % Absolute Granulocytes 5.33 (1.4-6.9) Basophils # 0.04 (0-0.4) Sodium 141 (137-145) mmol/L Potassium 3.3 L (3.5-5.1) mmol/L Chloride 99 (98-107) mmol/L Carbon Dioxide 29 (22-30) mmol/L Anion Gap 16.1 H (5-15) MEQ/L BUN 11 (7-17) mg/dL Creatinine 0.70 (0.52-1.04) mg/dL Estimated GFR > 60.0 ML/MIN Glucose 148 H (74-106) mg/dL Calcium 9.6 (8.4-10.2) mg/dL Total Bilirubin 0.40 (0.2-1.3) mg/dL AST 24 (14-36) U/L ALT 29 (0-35) U/L Alkaline Phosphatase 91 (38-126) U/L Serum Total Protein 8.0 (6.3-8.2) g/dL Albumin 4.3 (3.5-5.0) g/dL Amylase 37 (30-110) U/L Lipase 68 (23-300) U/L Ur Collection Type VOID Urine Color YELLOW (YELLOW) Urine Appearance CLOUDY (CLEAR) Urine pH 6.0 (5-6) Ur Specific [place] 1.015 (1.005-1.025) Urine Protein NEGATIVE (Negative) Urine Ketones NEGATIVE (NEGATIVE) Urine Blood 250 (0-5) Mesfin/ul Urine Nitrite NEGATIVE (NEGATIVE) Urine Bilirubin NEGATIVE (NEGATIVE) Urine Urobilinogen NORMAL (0-1) mg/dL Ur Leukocyte Esterase TRACE (NEGATIVE) Urine Microscopic RBC 2-5 (0-2) /HPF Urine Microscopic WBC 5-10 (0-5) /HPF Ur Epithelial Cells MANY (FEW) /HPF Urine Bacteria FEW (NEGATIVE) /HPF Urine Culture Reflexed YES (NO) Urine Glucose NEGATIVE (NEGATIVE) mg/dL Specimen Received 01/06/18 2100 - Progress Progress: improved, pain not gone completely Progress Note: 01/07/18 00:54 IV NORMAL SALINE 500ML/HR, ZOFRAN 4MG, DILAUDID 1MG, AFTER 2 SETS OF BLOOD CULTURES LEVAQUIN 500MG IVPB. TORADOL 30MG IV ONSET OF ITCHING, LATERAL ADMITS TO TORADOL TABLET ALLERGY. ADMINISTERED BENADRYL 50MG, SOLUMEDROL 125MG IV Counseled pt/family regarding: lab results, diagnosis, need for follow-up, rad results - Departure Time of Disposition: 02:00 Departure Disposition: Home Clinical Impression: RENAL COLIC, URINARY TRACT INFECTION, TORADOL ALLERGY Condition: Stable Critical Care Time: No Referrals: GWYN JUAREZ MD [Primary Care Provider] - Additional Instructions: STRAIN YOUR URINE FOR 72 HOURS. ANTIBIOTIC LEVAQUIN 500MG DAILY FOR 10 DAYS. ZOFRAN 4MG EVERY 4 HOURS FOR NAUSEA NEEDED. [place] 5/325 EVERY 4 HOURS FOR PAIN. TAKE OVER THE COUNTER BENADRYL 50MG EVERY 4 HOURS FOR ITCHING. PREDNISONE 20MG, 2 TABLETS DAILY FOR 5 DAYS. CONSULT YOUR PRIMARY CARE PROVIDER FOR FOLLOWUP IN 1 WEEK. Prescriptions: Hydrocodone/Acetaminophen [[place] 5-325 Tablet] 1 each PO Q4H PRN PRN #10 tablet MDD 4 PRN Reason: Pain Ondansetron ODT 4 MG [Zofran Odt 4 mg] 4 mg PO Q4H PRN PRN #6 tab.rapdis PRN Reason: Nausea Levofloxacin [Levaquin] 500 mg PO DAILY #10 tablet Prednisone 20 mg [Deltasone 20 mg] 2 tab PO DAILY #10 tablet
[2018-01-06 21:32] LABS: Appearance CLOUDY (CLEAR); Bacteria FEW /HPF (NEGATIVE); Bilirubin NEGATIVE (NEGATIVE); Blood 250 Ery/ul (0-5); Epithelial Cells MANY /HPF (FEW); Glucose NEGATIVE (NEGATIVE); Ketones NEGATIVE (NEGATIVE); Leukocyte Esterase TRACE (NEGATIVE); Nitrite NEGATIVE (NEGATIVE); Protein,Urine Dip NEGATIVE (Negative); Specific Gravity 1.015 (1.005-1.025); Urobilinogen NORMAL mg/dL (0-1)
[2018-01-06 21:34] LABS: BASOPHIL % 0.4 % (0.0-0.4); Basophil (Absolute #) 0.04 (0-0.4); Eosinophil % 1.7 % (0.00-5.0); Eosinophil (Absolute #) 0.16 (0-0.5); Granulocyte Absolute (ANC) 5.33 (1.4-6.9); Granulocytes % 58.1 % (36.0-66.0); Hematocrit 44.3 % (35-47); Lymphocyte (Absolute #) 3.13 (1.0-4.6); Lymphocytes % 34.1 % (24.0-44.0); Mean Cell Volume 80.4 fl (78-100); Mean Corpuscular Hemoglobin 27.2 pg (26-32); Mean Corpuscular Hgb Concent. 33.9 g/dl (32-36); Mean Platelet Volume 11.1 fl (6-9.5); Monocyte (Absolute #) 0.52 (0.0-1.3); Monocytes % 5.7 % (0.0-12.0); Platelet Count 367 K/mm3 (150-450); Red Blood Count 5.51 M/mm3 (4.1-5.4); Red Cell Distribution Width 13.2 % (11.5-14.0); White Blood Count 9.2 K/mm3 (4.0-10.5)
[2018-01-06 21:42] LABS: ALBUMIN 4.3 g/dL (3.5-5.0); ALKALINE PHOSPHATASE 91 U/L (38-126); AMYLASE 37 U/L (30-110); ANION GAP 16.1 MEQ/L (5-15); BLOOD UREA NITROGEN 11 mg/dL (7-17); CHLORIDE 99 mmol/L (98-107); Calcium 9.6 mg/dL (8.4-10.2); Carbon Dioxide 29 mmol/L (22-30); Glucose 148 mg/dL (74-106); LIPASE 68 U/L (23-300); Potassium 3.3 mmol/L (3.5-5.1); SGOT/AST 24 U/L (14-36); SGPT/ALT 29 U/L (0-35); SODIUM 141 mmol/L (137-145)
[2018-01-06] MEDS ORDERED: Levofloxacin 500MG/100ML D5W 500 MG/100 ML BAG IV STA (22:33)
[2018-01-06] MEDS ORDERED: TORAdol 30 mg Injection ONE (22:40)
[2018-01-06] MEDS ORDERED: TORAdol 30 mg Injection IV ONE (22:43)
[2018-01-06] MEDS ORDERED: solu-MEDROL 125 MG IV ONE (23:43)
[2018-01-06] MEDS ORDERED: BENADRYL 50 MG/ML IV ONE (23:43)
[2018-01-06] MEDS ORDERED: BENADRYL 50 MG/ML ONE (23:46)
[2018-01-06] MEDS ORDERED: solu-MEDROL 125 MG ONE (23:46)
[2018-01-07 01:10] VITALS: BP 119/80; PULSE 83; O2SAT 97
--- NOTE | 2018-01-07 08:50 | XRAY ---
Indication: Right flank pain. Nausea and vomiting. Multiple contiguous axial images obtained through the abdomen and pelvis without contrast as ordered. Comparison: May 31, 2017. Lung bases remaining clear. Heart is not enlarged. Noncontrasted stomach and bowel loops appear nonobstructed. Normal appendix. Stable fatty liver. New 2.5 cm left ovary cyst. No free fluid/air. Remaining liver, pancreas, spleen, adrenal glands, kidneys, ureters, bladder, uterus, and aorta appear unremarkable for noncontrast exam. Osseous structures intact again with mild multilevel degenerative spondylosis. Impression: 1. New 2.5 cm left ovary cyst. 2. Stable fatty liver. 2. No acute intra-abdominal/pelvic abnormalities on this noncontrast exam. CT DI 20.63
== END 2018-01-07 01:11 | disposition home or self-care (01) ==
LOC: ED 20:00
DX: N23 Unspecified renal colic (principal); N39.0 Urinary tract infection, site not specified; R10.31 Right lower quadrant pain; Z79.899 Other long term (current) drug therapy; L29.9 Pruritus, unspecified; T39.8X5A Adverse effect of other nonopioid analgesics and antipyretics, not elsewhere classified, initial encounter
CPT/HCPCS: 36415; 74176; 80053; 81000; 82150; 83690; 85025; 87086; 96360; 96361; 96365; 96374; 96375; 99283; 99284; J1170; J1200; J1885; J1956; J2405; J2930

== ENCOUNTER 2018-04-17 11:03 | Inpatient (IN) | payer OTHER ==
[~2018-04-17 11:03] MED LIST: BRIDION 200MG/2ML IV ONE; DIPRIVAN 200 MG/20 ML IV ONE; Decadron 4 MG INJ IV ONE; Lactated Ringers 1,000 ML IV ONE; Lactated Ringers 1,000 ML IV SCH; POTASSIUM CHLORIDE 20 mEq IN WATER 100ML 100 ML IV SCH; Quelicin Fliptop 200 MG/10 ML IV ONE; SUBLIMAZE 100 MCG/2 ML IV ONE; Sensorcaine 0.25% 10 ML ONE; TORAdol 30 mg Injection IV ONE; Versed 2 MG/2 ML Injection IV ONE; XYLOCAINE 2%/Epi 1:200000 20ML VIAL MPF IJ ONE; Xylocaine-Mpf 2% 5 Ml Vial IJ ONE; Zemuron 100 MG/10 ML IV ONE; Zofran 4 MG/2 ML VIAL IV ONE
[2018-04-17] MEDS ORDERED: MEFOXIN 2 GM PREMIX** 2 GM/50 ML ML IV SCH (12:00)
[2018-04-17] MEDS ORDERED: EPIDURAL - ROPIVICAINE0.5%/SUFENTA 250 MCG/NS EPIDURAL PRN (17:02)
[2018-04-17] MEDS ORDERED: PERCOCET TABLET 5/325MG PO PRN (17:15)
[2018-04-17] MEDS ORDERED: Sodium Chloride 0.9% 10 ML FLUSH Syringe IJ PRN (17:15)
[2018-04-17] MEDS ORDERED: NALBUPHINE HCL 10 MG/1 ML INJECTION IV PRN (17:15)
[2018-04-17] MEDS ORDERED: Zofran 4 MG/2 ML VIAL IV PRN (17:15)
[2018-04-17] MEDS ORDERED: Narcan 0.4 MG/ML IV PRN (17:15)
[2018-04-17] MEDS ORDERED: MORPHINE SULFATE 2 MG INJ IV PRN (17:15)
[2018-04-17] MEDS ORDERED: CLARITIN 10 MG PO PRN (17:15)
[2018-04-17] MEDS: SODIUM CHLORIDE 0.45% W/ 20 mEq KCL 1,000 ML IV SCH (18:04)
[2018-04-17] MEDS: Zofran 4 MG/2 ML VIAL IVIM PRN (18:05)
[2018-04-17 19:05] LABS: Appearance HAZY (CLEAR); Glucose NEGATIVE (NEGATIVE); Ketones TRACE (NEGATIVE); Leukocyte Esterase NEGATIVE (NEGATIVE); Nitrite NEGATIVE (NEGATIVE); Protein,Urine Dip NEGATIVE (Negative); Urobilinogen NORMAL mg/dL (0-1)
[2018-04-17 19:06] LABS: Bilirubin NEGATIVE (NEGATIVE); Epithelial Cells RARE /HPF (FEW); RBC 0-2 /HPF (0-2)
[2018-04-17] MEDS: MEFOXIN 2 GM PREMIX** 2 GM/50 ML ML IV SCH (19:40)
[2018-04-17] MEDS: Morphine PCA 1 MG/ML 30 ML IV PRN (20:05)
[2018-04-17] MEDS: Naprosyn 500 MG PO SCH (21:06)
[2018-04-17] MEDS: Voltaren GEL TOP SCH (21:07)
[2018-04-17] MEDS: Sodium Chloride 0.9% 10 ML FLUSH Syringe IJ SCH (21:07)
[2018-04-17] MEDS: Klor Con 10 MEQ PO SCH (21:10)
[2018-04-17] MEDS ORDERED: POTASSIUM CHLORIDE PO SCH ×2 (22:00)
[2018-04-18] MEDS: Zofran 4 MG/2 ML VIAL IVIM PRN ×2 (00:07→07:59)
[2018-04-18] MEDS: MEFOXIN 2 GM PREMIX** 2 GM/50 ML ML IV SCH ×3 (01:25→13:40)
[2018-04-18] MEDS: TYLENOL 325 MG PO PRN (01:31)
[2018-04-18 05:41] LABS: Hemoglobin 12.6 gm/dl (12.0-16.0); Mean Cell Volume 82.3 fl (78-100); Mean Corpuscular Hemoglobin 27.3 pg (26-32); Mean Corpuscular Hgb Concent. 33.2 g/dl (32-36); Mean Platelet Volume 11.6 fl (6-9.5); Platelet Count 264 K/mm3 (150-450); Red Blood Count 4.62 M/mm3 (4.1-5.4); Red Cell Distribution Width 13.2 % (11.5-14.0); White Blood Count 12.2 K/mm3 (4.0-10.5)
[2018-04-18] MEDS: Sodium Chloride 0.9% 10 ML FLUSH Syringe IJ SCH ×3 (05:41→23:00)
[2018-04-18 05:48] LABS: ANION GAP 11.8 MEQ/L (5-15); BLOOD UREA NITROGEN 9 mg/dL (7-17); CHLORIDE 102 mmol/L (98-107); Carbon Dioxide 25 mmol/L (22-30); Creatinine 1 0.66 mg/dL (0.52-1.04); Glucose 132 mg/dL (74-106); Potassium 3.4 mmol/L (3.5-5.1); SODIUM 135 mmol/L (137-145)
[2018-04-18] MEDS: SODIUM CHLORIDE 0.45% W/ 20 mEq KCL 1,000 ML IV SCH ×2 (06:01→17:22)
--- NOTE | 2018-04-18 08:11 | OP ---
SURGERY DATE/TIME: 04/17/2018 1402 PREOPERATIVE DIAGNOSIS: Recurrent persistent dysfunctional uterine bleeding and uterine wall thickening. POSTOPERATIVE DIAGNOSIS: Recurrent persistent dysfunctional uterine bleeding and uterine wall thickening. Substantial adhesions from her previous section especially anteriorly. PROCEDURE: Total abdominal hysterectomy, bilateral salpingo-oophorectomy. SURGEON: Giacomo Jose M.D. EXPORT COORDINATOR: [employer] student. ANESTHESIA: General with epidural block. COMPLICATIONS: None. CONDITION: Stable. ESTIMATED BLOOD LESS: Less than 50. DRAINS: None. [place]ICK[place]: Clear. INDICATION: A patient with persistent recurrent dysfunctional uterine bleeding. She also has increased uterine wall thickening. She did not appear to be a great candidate for ablation. Options discussed with her and she wished to proceed with hysterectomy. DESCRIPTION OF PROCEDURE: She was taken to surgery. General anesthetic, routine prep and drape. The previous section Pfannenstiel was reopened. She has had two previous sections through this. There was significant scarring of the bladder to the mid body of the uterus this was taken down. She had a previous tubal. The ovaries had very little functional tissue on either left or right, close to noon. They were elevated from pelvic side leung. They were taken with a stapling device. The round ligaments taken with stapling device. Broad ligament taken with triple Jim. Paracervical tissue four bites on the left and four on the right. It was somewhat tight skinned and was fairly long. Towards the bottom of the cervix the adhesiveness to the bladder had been circumnavigated and this plane then subsequently was clean. Entry posteriorly. Vagina circumscribed by the base of the cervix. Two corner sutures #0 PDS. Five sutures #PDS placed inside. The corner sutures then anchored into the uterosacral and round ligaments. Field was totally dry, was irrigated. Bowels laid back in natural position. Peritoneum closed with 0 PDS. Anterior abdominal wall closed with looped 0 PDS. Subcutaneous tissue irrigated. Skin closed with 4-0 Vicryl. Steri-Strips applied. Sterile dressing applied. The patient tolerated the procedure satisfactorily. Findings discussed with the in the waiting room.
[2018-04-18] MEDS: Protonix 40MG Tablet PO SCH (09:49)
[2018-04-18] MEDS: Lopressor 25MG Tab PO SCH (09:50)
[2018-04-18] MEDS: hydroDIURIL 25 MG PO SCH (09:50)
[2018-04-18] MEDS: Naprosyn 500 MG PO SCH ×2 (09:50→22:40)
[2018-04-18] MEDS: Klor Con 10 MEQ PO SCH ×5 (09:50→22:40)
[2018-04-18] MEDS: Voltaren GEL TOP SCH ×2 (09:52→23:01)
[2018-04-18] MEDS ORDERED: NON-FORMULARY ITEM (Omeprazole 20 Mg [Prilosec 20 Mg] 40 MG) PO SCH (10:00)
[2018-04-18] MEDS ORDERED: PHARMACY DOSING REQUEST MC ONE (13:54)
[2018-04-18] MEDS: Phenergan 25 MG INJ IV PRN ×2 (14:15→22:53)
[2018-04-18] MEDS: Morphine PCA 1 MG/ML 30 ML IV PRN (19:56)
[2018-04-19] MEDS ORDERED: PERCOCET TABLET 5/325MG PO PRN (00:28)
[2018-04-19] MEDS: TYLENOL 325 MG PO PRN (02:44)
[2018-04-19] MEDS: Sodium Chloride 0.9% 10 ML FLUSH Syringe IJ SCH (08:22)
[2018-04-19] MEDS: Lopressor 25MG Tab PO SCH (09:29)
[2018-04-19] MEDS: Klor Con 10 MEQ PO SCH (09:29)
[2018-04-19] MEDS: hydroDIURIL 25 MG PO SCH ×2 (09:29→09:32)
[2018-04-19] MEDS: Naprosyn 500 MG PO SCH (09:29)
[2018-04-19] MEDS: Protonix 40MG Tablet PO SCH (09:29)
[2018-04-19] MEDS: Voltaren GEL TOP SCH ×2 (09:30→10:28)
[2018-04-19 11:34] VITALS: BP 124/77; PULSE 76; O2SAT 96
== END 2018-04-19 13:00 | disposition home or self-care (01) | DRG 743 ==
LOC: MED SURG 11:48
PROVIDERS: ADMIT Surgery; ATTEND Surgery
PROC: 0UT90ZZ Resection of Uterus, Open Approach (ICD-10-PCS; principal; 2018-04-17)
PROC: 0UT70ZZ Resection of Bilateral Fallopian Tubes, Open Approach (ICD-10-PCS; 2018-04-17)
PROC: 0UT20ZZ Resection of Bilateral Ovaries, Open Approach (ICD-10-PCS; 2018-04-17)
DX: N85.00 Endometrial hyperplasia, unspecified (principal); N93.8 Other specified abnormal uterine and vaginal bleeding; I10 Essential (primary) hypertension; Z87.440 Personal history of urinary (tract) infections
CPT/HCPCS: 36415; 62326; 80048; 81000; 84703; 85027; 87086; 94250; 94762; J0330; J0694; J1100; J1885; J2250; J2270; J2405; J2550; J2704; J3010; J3480; L0625; A9270-GY

== ENCOUNTER 2019-06-15 21:25 | Emergency (ER) | payer OTHER ==
[2019-06-15] MEDS ORDERED: Lactated Ringers 1,000 ML IV ONE ×2 (21:57→22:08)
[2019-06-15] MEDS ORDERED: Zofran 4 MG/2 ML VIAL IV ONE (22:00)
[2019-06-15] MEDS ORDERED: MORPHINE SULFATE 4 MG INJ IV ONE ×2 (22:00→23:01)
--- NOTE | 2019-06-15 22:04 | ERPHSYRPT ---
- History of Present Illness Time Seen by Provider: 06/15/19 21:53 Historian: patient Exam Limitations: no limitations Patient Subjective Stated Complaint: Right sided abdomen and flank pain. Triage Nursing Assessment: Patient ambulated back to ED and transferred self to bed. Patient's skin pink, warm and dry. Patient A+O X3. Patient complains of sudden onset on right sided abdominal pain/flank pain since noon. Patient states she did have diarrhea. Patient has been nauseuos, but denies vomiting. Patient states pain is 8/10 constant, sharp pain to right abdomen and flank. Patient's abdomen soft and round with BS X 4. Patient denies any trouble urinating. Timing/Duration: today Activities at Onset: none Quality: cramping, stabbing Pain Radiation: RUQ, flank Severity of Pain-Max: moderate Severity of Pain-Current: moderate Modifying Factors: Improves With: nothing Associated Symptoms: loss of appetite, nausea, No chest pain, No diaphoresis, No diarrhea, No fever/chills, No fatigue, No headache, No heartburn, No neck pain, No shortness of breath, No syncope Previous symptoms: no prior history Allergies/Adverse Reactions: acetaminophen [From [place]] Allergy (Intermediate, Verified 06/15/19 21:34) Itching hydrocodone [From [place]] Allergy (Intermediate, Verified 06/15/19 21:34) Itching tramadol Allergy (Intermediate, Verified 06/15/19 21:34) Itching Home Medications: Metoprolol Tartrate 25 mg [Lopressor 25MG Tab] 25 mg PO DAILY 01/17/15 [ History] Omeprazole 20 MG [Prilosec 20 mg] 40 mg PO DAILY 01/17/15 [History] Naproxen 500 mg PO BID 09/24/16 [History] Diclofenac Sodium Gel [Voltaren GEL] 1 applic TOP BID 04/17/18 [History] Hx Tetanus, Diphtheria Vaccination/Date Given: No Hx Influenza Vaccination/Date Given: No Hx Pneumococcal Vaccination/Date Given: No Immunizations Up to Date: Yes - Review of Systems Constitutional: Fatigue, Malaise, No Fever Eyes: No Symptoms Ears, Nose, & Throat: No Symptoms Respiratory: No Symptoms Cardiac: No Symptoms Abdominal/Gastrointestinal: Abdominal Pain, Nausea, Vomiting, No Diarrhea Genitourinary Symptoms: No Symptoms Musculoskeletal: No Symptoms Skin: No Symptoms Neurological: No Symptoms Psychological: No Symptoms Endocrine: No Symptoms Hematologic/Lymphatic: No Symptoms Immunological/Allergic: No Symptoms All Other Systems: Reviewed and Negative - Past Medical History Pertinent Past Medical History: Yes Neurological History: No Pertinent History ENT History: No Pertinent History Cardiac History: Angina, Hypertension Respiratory History: No Pertinent History Endocrine Medical History: No Pertinent History Musculoskeletal History: Degenerative Disk Disease GI Medical History: GERD History: Other Psycho-Social History: No Pertinent History Female Reproductive Disorders: No Pertinent History, Other Other Medical History: herniated disc lower back, steroid epidural inj for back pain. Hx of frequent UTI's. - Past Surgical History Past Surgical History: Yes Neuro Surgical History: No Pertinent History Cardiac: Cardiac Catheterization Respiratory: No Pertinent History Gastrointestinal: Cholecystectomy Genitourinary: No Pertinent History Musculoskeletal: No Pertinent History Female Surgical History: Hysterectomy, Section, Tubal Ligation - Social History Smoking Status: Never smoker Exposure to second hand smoke: No Drug Use: none Patient Lives Alone: No Significant Family History: heart disease (father) - Female History Hx Last Menstrual Period: Hysterectomy Hx Now: No - Nursing Vital Signs Nursing Vital Signs: Initial Vital Signs Temperature 97.6 F 06/15/19 21:34 Pulse Rate 86 06/15/19 21:34 Respiratory Rate 18 06/15/19 21:34 Blood Pressure 114/77 06/15/19 21:34 O2 Sat by Pulse Oximetry 98 06/15/19 21:34 Pain Scale Pain Intensity 7 - Physical Exam General Appearance: mild distress Eye Exam: PERRL/EOMI Ears, Nose, Throat Exam: normal ENT inspection Neck Exam: normal inspection Respiratory Exam: normal breath sounds Cardiovascular Exam: regular rate/rhythm Gastrointestinal/Abdomen Exam: soft, normal bowel sounds, tenderness (RUQ) Rectal Exam: deferred Back Exam: normal inspection Extremity Exam: normal inspection, normal range of motion Neurologic Exam: alert, oriented x 3, cooperative Skin Exam: normal color, warm, dry, rash SpO2 Interpretation: normal SpO2: 98 O2 Delivery: Room Air - Course Nursing assessment & vital signs reviewed: Yes - CT Exams Abdomen/Pelvis CT Interpretation: Tele-radiologist Report, Other (fatty liver) Ordered Tests: Active Orders 24 hr Category Date Time Status ABDOMEN AND PELVIS W/0 CONTRAS [CT] Stat Exams 06/15/19 22:02 Taken AMYLASE Stat Lab 06/15/19 22:00 Completed CBC W DIFF Stat Lab 06/15/19 22:00 Completed CMP Stat Lab 06/15/19 22:00 Completed LIPASE Stat Lab 06/15/19 22:00 Completed UA W/RFX UR CULTURE Stat Lab 06/15/19 22:00 Completed Medication Summary Discontinued Medications Generic Name Dose Route Start Last Admin Trade Name Serena PRN Reason Stop Dose Admin Lactated Ringer's 1,000 mls @ 999 mls/hr 06/15/19 21:57 06/15/19 22:13 Lactated Ringers IV 06/15/19 22:57 999 mls/hr .Q1H1M ONE Administration Lactated Ringer's Confirm 06/15/19 22:08 Lactated Ringers Administered 06/15/19 22:09 Dose 1,000 mls @ ud IV .STK-MED ONE Morphine Sulfate 4 mg 06/15/19 22:00 06/15/19 22:13 Morphine Sulfate 4 Mg Inj IV 06/15/19 22:01 4 mg STAT ONE Administration Morphine Sulfate Confirm 06/15/19 22:08 Morphine Sulfate 4 Mg Inj Administered 06/15/19 22:09 Dose 4 mg .ROUTE .STK-MED ONE Morphine Sulfate 4 mg 06/15/19 23:01 06/15/19 23:08 Morphine Sulfate 4 Mg Inj IV 06/15/19 23:02 4 mg STAT ONE Administration Morphine Sulfate Confirm 06/15/19 23:05 Morphine Sulfate 4 Mg Inj Administered 06/15/19 23:06 Dose 4 mg .ROUTE .STK-MED ONE Ondansetron HCl 4 mg 06/15/19 22:00 06/15/19 22:14 Zofran 4 Mg/2 Ml Vial IV 06/15/19 22:01 4 mg STAT ONE Administration Ondansetron HCl Confirm 06/15/19 22:08 Zofran 4 Mg/2 Ml Vial Administered 06/15/19 22:09 Dose 4 mg .ROUTE .STK-MED ONE Prochlorperazine Edisylate 10 mg 06/15/19 23:01 06/15/19 23:07 Compazine 10 Mg/2 Ml IV 06/15/19 23:02 10 mg STAT ONE Administration Prochlorperazine Edisylate Confirm 06/15/19 23:05 Compazine 10 Mg/2 Ml Administered 06/15/19 23:06 Dose 10 mg .ROUTE .STK-MED ONE Lab/Rad Data: Laboratory Result Diagrams 06/15/19 22:00 06/15/19 22:00 Laboratory Results 06/15/19 06/15/19 06/15/19 Range/Units 22:00 22:00 22:00 WBC (4.0-10.5) K/mm3 RBC (4.1-5.4) M/mm3 Hgb (12.0-16.0) gm/dl Hct (35-47) % MCV (78-100) fl MCH (26-32) pg MCHC (32-36) g/dl RDW (11.5-14.0) % Plt Count (150-450) K/mm3 MPV (6-9.5) fl Gran % (36.0-66.0) % Eos # (Auto) (0-0.5) Absolute Lymphs (auto) (1.0-4.6) Absolute Monos (auto) (0.0-1.3) Lymphocytes % (24.0-44.0) % Monocytes % (0.0-12.0) % Eosinophils % (0.00-5.0) % Basophils % (0.0-0.4) % Absolute Granulocytes (1.4-6.9) Basophils # (0-0.4) Sodium 141 (137-145) mmol/L Potassium 3.5 (3.5-5.1) mmol/L Chloride 99 (98-107) mmol/L Carbon Dioxide 28 (22-30) mmol/L Anion Gap 17.2 H (5-15) MEQ/L BUN 10 (7-17) mg/dL Creatinine 0.64 (0.52-1.04) mg/dL Estimated GFR > 60.0 ML/MIN Glucose 257 H (74-106) mg/dL Calcium 9.5 (8.4-10.2) mg/dL Total Bilirubin 0.40 (0.2-1.3) mg/dL AST 43 H (14-36) U/L ALT 65 H (0-35) U/L Alkaline Phosphatase 145 H (38-126) U/L Serum Total Protein 8.1 (6.3-8.2) g/dL Albumin 4.4 (3.5-5.0) g/dL Amylase 36 (30-110) U/L Lipase 203 (23-300) U/L Urine Color YELLOW (YELLOW) Urine Appearance SLIGHTLY CLOUDY (CLEAR) Urine pH 7.0 (5-6) Ur Specific [place] 1.018 (1.005-1.025) Urine Protein NEGATIVE (Negative) Urine Ketones NEGATIVE (NEGATIVE) Urine Blood SMALL (0-5) Mesfin/ul Urine Nitrite NEGATIVE (NEGATIVE) Urine Bilirubin NEGATIVE (NEGATIVE) Urine Urobilinogen NEGATIVE (0-1) mg/dL Ur Leukocyte Esterase NEGATIVE (NEGATIVE) Urine WBC (Auto) NONE (0-5) /HPF Urine RBC (Auto) NONE (0-2) /HPF U Epithel Cells (Auto) RARE (FEW) /HPF Urine Bacteria (Auto) NONE (NEGATIVE) /HPF Urine Mucus (Auto) SLIGHT (NEGATIVE) /HPF Urine Culture Reflexed NO (NO) Urine Glucose >=500 (NEGATIVE) mg/dL 06/15/19 Range/Units 22:00 WBC 9.2 (4.0-10.5) K/mm3 RBC 5.37 (4.1-5.4) M/mm3 Hgb 14.5 (12.0-16.0) gm/dl Hct 43.5 (35-47) % MCV 81.0 (78-100) fl MCH 27.0 (26-32) pg MCHC 33.3 (32-36) g/dl RDW 13.2 (11.5-14.0) % Plt Count 314 (150-450) K/mm3 MPV 11.6 H (6-9.5) fl Gran % 46.5 (36.0-66.0) % Eos # (Auto) 0.30 (0-0.5) Absolute Lymphs (auto) 3.98 (1.0-4.6) Absolute Monos (auto) 0.57 (0.0-1.3) Lymphocytes % 43.5 (24.0-44.0) % Monocytes % 6.2 (0.0-12.0) % Eosinophils % 3.3 (0.00-5.0) % Basophils % 0.5 (0.0-0.4) % Absolute Granulocytes 4.25 (1.4-6.9) Basophils # 0.05 (0-0.4) Sodium (137-145) mmol/L Potassium (3.5-5.1) mmol/L Chloride (98-107) mmol/L Carbon Dioxide (22-30) mmol/L Anion Gap (5-15) MEQ/L BUN (7-17) mg/dL Creatinine (0.52-1.04) mg/dL Estimated GFR ML/MIN Glucose (74-106) mg/dL Calcium (8.4-10.2) mg/dL Total Bilirubin (0.2-1.3) mg/dL AST (14-36) U/L ALT (0-35) U/L Alkaline Phosphatase (38-126) U/L Serum Total Protein (6.3-8.2) g/dL Albumin (3.5-5.0) g/dL Amylase (30-110) U/L Lipase (23-300) U/L Urine Color (YELLOW) Urine Appearance (CLEAR) Urine pH (5-6) Ur Specific [place] (1.005-1.025) Urine Protein (Negative) Urine Ketones (NEGATIVE) Urine Blood (0-5) Mesfin/ul Urine Nitrite (NEGATIVE) Urine Bilirubin (NEGATIVE) Urine Urobilinogen (0-1) mg/dL Ur Leukocyte Esterase (NEGATIVE) Urine WBC (Auto) (0-5) /HPF Urine RBC (Auto) (0-2) /HPF U Epithel Cells (Auto) (FEW) /HPF Urine Bacteria (Auto) (NEGATIVE) /HPF Urine Mucus (Auto) (NEGATIVE) /HPF Urine Culture Reflexed (NO) Urine Glucose (NEGATIVE) mg/dL - Progress Progress: improved, pain not gone completely, re-examined Progress Note: 06/15/19 23:32 Only definite findings are fatty liver on CT and some mildly elevated liver tests. Recommend that she see PCP, consider US and/or referral to GI. Counseled pt/family regarding: lab results, diagnosis, need for follow-up, rad results - Departure Departure Disposition: Home Clinical Impression: Fatty liver Condition: Stable Critical Care Time: No Referrals: GWYN JUAREZ MD [Primary Care Provider] - Additional Instructions: See your family DrDonte More tests can be done, and possibly a referral to a maintenance shop welder. Plan of Treatment: See PCP and/or GI. Prescriptions: Ondansetron ODT 4 MG [Zofran Odt 4 mg] 4 mg PO Q6H PRN PRN #12 tab.rapdis PRN Reason: Nausea/Vomiting
[2019-06-15] MEDS ORDERED: MORPHINE SULFATE 4 MG INJ ONE ×2 (22:08→23:05)
[2019-06-15] MEDS ORDERED: Zofran 4 MG/2 ML VIAL ONE (22:08)
[2019-06-15 22:14] LABS: Appearance SLIGHTLY CLOUDY (CLEAR); BASOPHIL % 0.5 % (0.0-0.4); Basophil (Absolute #) 0.05 (0-0.4); Bilirubin NEGATIVE (NEGATIVE); Blood SMALL Ery/ul (0-5); Eosinophil % 3.3 % (0.00-5.0); Epithelial Cells RARE /HPF (FEW); Glucose >=500 mg/dL (NEGATIVE); Granulocyte Absolute (ANC) 4.25 (1.4-6.9); Granulocytes % 46.5 % (36.0-66.0); Hematocrit 43.5 % (35-47); Hemoglobin 14.5 gm/dl (12.0-16.0); Ketones NEGATIVE (NEGATIVE); Leukocyte Esterase NEGATIVE (NEGATIVE); Lymphocyte (Absolute #) 3.98 (1.0-4.6); Lymphocytes % 43.5 % (24.0-44.0); Mean Corpuscular Hgb Concent. 33.3 g/dl (32-36); Mean Platelet Volume 11.6 fl (6-9.5); Monocyte (Absolute #) 0.57 (0.0-1.3); Monocytes % 6.2 % (0.0-12.0); Mucus SLIGHT /HPF (NEGATIVE); Nitrite NEGATIVE (NEGATIVE); Platelet Count 314 K/mm3 (150-450); Protein,Urine Dip NEGATIVE (Negative); Red Blood Count 5.37 M/mm3 (4.1-5.4); Red Cell Distribution Width 13.2 % (11.5-14.0); Specific Gravity 1.018 (1.005-1.025); Urobilinogen NEGATIVE mg/dL (0-1); White Blood Count 9.2 K/mm3 (4.0-10.5)
[2019-06-15 22:23] LABS: AMYLASE 36 U/L (30-110); LIPASE 203 U/L (23-300)
[2019-06-15 22:24] LABS: ALBUMIN 4.4 g/dL (3.5-5.0); ALKALINE PHOSPHATASE 145 U/L (38-126); ANION GAP 17.2 MEQ/L (5-15); BLOOD UREA NITROGEN 10 mg/dL (7-17); CHLORIDE 99 mmol/L (98-107); Calcium 9.5 mg/dL (8.4-10.2); Carbon Dioxide 28 mmol/L (22-30); Creatinine 1 0.64 mg/dL (0.52-1.04); Glucose 257 mg/dL (74-106); Potassium 3.5 mmol/L (3.5-5.1); SGOT/AST 43 U/L (14-36); SGPT/ALT 65 U/L (0-35); SODIUM 141 mmol/L (137-145); Total Protein 8.1 g/dL (6.3-8.2)
[2019-06-15 22:53] VITALS: O2SAT 98
[2019-06-15] MEDS ORDERED: Compazine 10 MG/2 ML IV ONE (23:01)
[2019-06-15] MEDS ORDERED: Compazine 10 MG/2 ML ONE (23:05)
[2019-06-15 23:34] VITALS: BP 154/89; PULSE 85
--- NOTE | 2019-06-16 21:57 | XRAY ---
Exam: CT of the abdomen and pelvis without IV contrast from 06/15/2019. CTDI: 23.68 mGy Comparison: CT of the abdomen and pelvis without IV contrast from 01/06/2018. Indication: 49-year-old female with right flank pain and right upper quadrant abdominal pain. The patient gives a history of prior cholecystectomy, hysterectomy, section, and tubal ligation. Technique: Non-IV contrast axial images were obtained through the abdomen and pelvis. Reconstructed coronal and sagittal images were created and reviewed. Findings: The lung bases reveal no active disease. There is a suggestion of some minimal transverse linear subsegmental atelectasis within the right midlung field. This is unchanged. The liver appears mildly enlarged and reveals extensive hepatic steatosis. I believe this has progressed as compared to 01/06/2018. Some areas of fatty sparing are seen within the inferior right hepatic lobe. Surgical clips consistent with prior cholecystectomy are seen. No intrahepatic biliary duct distention is seen. The spleen appears of unremarkable size and is remarkable for a small round splenule at its inferior medial margin. No splenic mass is seen. The pancreas appears unremarkable without evidence of mass, calcifications, or ductal distention. No peripancreatic inflammatory changes are seen. The adrenal glands appear of normal size and configuration without nodularity. The kidneys are of unremarkable size with the right kidney having a slightly altered oblique axis. No renal calculi, hydronephrosis, or definite renal mass is seen. The ureters appear of normal diameter and reveal no ureterolith. The abdominal aorta reveals mild atherosclerotic vascular calcification. No abdominal aortic aneurysm or abnormal retroperitoneal lymphadenopathy is seen. Abundant intraperitoneal fat is seen. There is no free intraperitoneal air. A small fat-containing umbilical hernia is seen on sagittal image #89 measuring about 1.5 cm in diameter. This is unchanged. No bowel containing ventral hernia is seen. Mild scattered stool is seen within the ascending colon and transverse colon. No bowel obstruction or bowel wall thickening is seen. The appendix appears unremarkable within the right lower quadrant. I see no findings of appendicitis. The patient has undergone interval hysterectomy and apparent bilateral salpingo-oophorectomy since the prior CT study. No free fluid or enlarged pelvic lymph nodes are seen. There are 2 or 3 small calcified phleboliths within the right gonadal vein on axial images #88 through #90. I also note some calcified phleboliths within the lower pelvis. The urinary bladder is only minimally distended. No urinary bladder stone is seen. The skeleton reveals no acute fracture or aggressive bone lesion. There is a minimal mid lumbar rotary levoscoliosis. There is moderate to marked degenerative disc disease of L-1L2 and L3-L4, at least moderate degenerative disc disease at L5-S1, and early/mild degenerative disc disease at L2-L3. These findings are similar to 01/06/2018. Only the L4-L5 interspace height remains well maintained. There is mild circumferential bulging of the L3-L4 disc. I note moderate narrowing of the L5-S1 neural foramen. Minimal lower thoracic vertebral endplate spurring is seen. Impression: 1. Extensive hepatic steatosis is seen which I believe is somewhat worse as compared to 01/06/2018. The liver also appears mildly enlarged. 2. Status post cholecystectomy. 3. No renal/ureteral stones, hydronephrosis, or acute obstructive uropathy is seen. Nor do I see a urinary bladder stone. 4. Normal appendix. 5. Interval hysterectomy and apparent bilateral salpingo-oophorectomy since the prior CT study of 01/06/2018. 6. Minimal stable fatty umbilical hernia. 7. Degenerative spondylosis and mild mid lumbar rotary levoscoliosis are noted, as described above.
== END 2019-06-15 23:48 | disposition home or self-care (01) ==
LOC: ED 21:25
DX: K76.0 Fatty (change of) liver, not elsewhere classified (principal)
CPT/HCPCS: 36000; 36415; 74176; 80053; 81001; 82150; 83690; 85025; 96360; 96374; 96375; 96376; 99284; J2270; J2405

== ENCOUNTER 2021-07-07 13:22 | Emergency (ER) | payer OTHER ==
--- NOTE | 2021-07-07 13:32 | ERPHSYRPT ---
- History of Present Illness Time Seen by Provider: 07/07/21 13:32 Source: patient Exam Limitations: no limitations Physician History: This is a 51-year-old white female who has a history of recurrent headaches. However, she states that last evening she has had the onset of the worst headache that she is ever had. It has gone throughout the night morning and into today. She denies fever. She has no flulike symptoms. She has no cough. She did not suffer any trauma to her head. Patient has no visual changes. She is light sensitive. She has family members that have migraine headaches. She has nausea but no vomiting. Patient has taken morphine in the past intravenously or by injection and has had no problems with this medication to help relieve pain. Timing/Duration: yesterday Quality: throbbing Head Pain Location: global Severity of Pain-Max: moderate Severity of Pain-Current: moderate Recent Head Trauma: no recent headache/trauma, occasional headaches Modifying Factors: Improves With: exposure to light Associated Symptoms: nausea/vomiting, sensitive to light, No seizures, No stiff neck, No vision changes, No visual disturbance Previous symptoms: no prior history Allergies/Adverse Reactions: acetaminophen [From [place]] Allergy (Intermediate, Verified 06/15/19 21:34) Itching hydrocodone [From [place]] Allergy (Intermediate, Verified 06/15/19 21:34) Itching tramadol Allergy (Intermediate, Verified 06/15/19 21:34) Itching Home Medications: Metoprolol Tartrate 25 mg [Lopressor 25MG Tab] 25 mg PO DAILY 01/17/15 [History] Omeprazole 20 MG [Prilosec 20 mg] 40 mg PO DAILY 01/17/15 [History] Naproxen 500 mg PO BID 09/24/16 [History] Diclofenac Sodium Gel [Voltaren GEL] 1 applic TOP BID 04/17/18 [History] Hx Tetanus, Diphtheria Vaccination/Date Given: No Hx Influenza Vaccination/Date Given: No Hx Pneumococcal Vaccination/Date Given: No Travel Risk - International Travel Have you traveled outside of the country in past 3 weeks: No - Coronavirus Screening Are you exhibiting any of the following symptoms?: No Close contact with a COVID-19 positive Pt in past 14-21 Days: No - Review of Systems Constitutional: No Symptoms Eyes: No Symptoms Ears, Nose, & Throat: No Symptoms Respiratory: No Symptoms Cardiac: No Symptoms Abdominal/Gastrointestinal: No Symptoms Genitourinary Symptoms: No Symptoms Musculoskeletal: No Symptoms Skin: No Symptoms Neurological: Headache Psychological: No Symptoms Endocrine: No Symptoms Hematologic/Lymphatic: No Symptoms Immunological/Allergic: No Symptoms All Other Systems: Reviewed and Negative - Past Medical History Pertinent Past Medical History: Yes Neurological History: No Pertinent History ENT History: No Pertinent History Cardiac History: Angina, Hypertension Respiratory History: No Pertinent History Endocrine Medical History: No Pertinent History Musculoskeletal History: Degenerative Disk Disease GI Medical History: GERD History: Other Psycho-Social History: No Pertinent History Female Reproductive Disorders: No Pertinent History, Other Other Medical History: herniated disc lower back, steroid epidural inj for back pain. Hx of frequent UTI's. - Past Surgical History Past Surgical History: Yes Neuro Surgical History: No Pertinent History Cardiac: Cardiac Catheterization Respiratory: No Pertinent History Gastrointestinal: Cholecystectomy Genitourinary: No Pertinent History Musculoskeletal: No Pertinent History Female Surgical History: Hysterectomy, Section, Tubal Ligation - Social History Smoking Status: Never smoker Exposure to second hand smoke: No Drug Use: none Patient Lives Alone: No Significant Family History: heart disease (father) - Nursing Vital Signs Nursing Vital Signs: Initial Vital Signs Temperature 98.3 F 07/07/21 14:04 Pulse Rate 106 H 07/07/21 14:04 Respiratory Rate 19 07/07/21 14:04 Blood Pressure 139/78 07/07/21 14:04 O2 Sat by Pulse Oximetry 96 07/07/21 14:04 Pain Scale Pain Intensity 10 - Physical Exam General Appearance: no apparent distress Eye Exam: PERRL/EOMI, eyes nml inspection Ears, Nose, Throat Exam: normal ENT inspection, TMs normal, pharynx normal, moist mucous membranes Neck Exam: normal inspection, non-tender, supple, full range of motion Respiratory Exam: normal breath sounds, lungs clear, airway intact, No chest tenderness, No respiratory distress Cardiovascular Exam: regular rate/rhythm, normal heart sounds, normal peripheral pulses Gastrointestinal/Abdominal Exam: soft, normal bowel sounds, No tenderness Back Exam: normal inspection, normal range of motion, No CVA tenderness, No vertebral tenderness Extremity Exam: normal inspection, normal range of motion, pelvis stable Mental Status Exam: alert, oriented x 3, 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 Exam: normal hearing, normal speech, PERRL Coordination/Gait Exam: normal finger to nose, normal gait, normal cerebellar function Motor/Sensory Exam: no motor deficit, no sensory deficit, no pronator drift Skin Exam: normal color, warm, dry Lymphatic Exam: No adenopathy SpO2 Interpretation: normal O2 Delivery: Room Air - Course Nursing assessment & vital signs reviewed: Yes Ordered Tests: Active Orders 24 hr Category Date Time Status HEAD WITHOUT CONTRAST [CT] Stat Exams 07/07/21 14:14 Completed Medication Summary Discontinued Medications Generic Name Dose Route Start Last Admin Trade Name Serena PRN Reason Stop Dose Admin Methylprednisolone Sodium 0 mg 07/07/21 15:44 Succinate 125 mg/ Sterile IM 07/07/21 15:45 Water 2 ml STAT ONE Diphenhydramine HCl 50 mg 07/07/21 15:44 Diphenhydramine Hcl 50 Mg/Ml Vial IM 07/07/21 15:45 STAT ONE Morphine Sulfate 6 mg 07/07/21 15:43 Morphine Sulfate 10 Mg/Ml Injection IM 07/07/21 15:44 STAT ONE Ondansetron HCl 4 mg 07/07/21 14:14 07/07/21 14:22 Zofran 4 Mg/Udtablet Orally Disintegrating PO 07/07/21 14:15 4 mg STAT ONE Administration Ondansetron HCl Confirm 07/07/21 14:22 Zofran 4 Mg/Udtablet Orally Disintegrating Administered 07/07/21 14:23 Dose 4 mg .ROUTE .STK-MED ONE - Progress Progress: improved, re-examined Air Movement: good Progress Note: 07/07/21 15:50 CAT scan of the head without contrast shows no acute intracranial abnormality. Blood Culture(s) Obtained: No Antibiotics given: No Counseled pt/family regarding: diagnosis, need for follow-up, rad results - Departure Departure Disposition: Home Clinical Impression: Migraine headache Condition: Stable Critical Care Time: No Referrals: GWYN JUAREZ MD [Primary Care Provider] - Additional Instructions: Follow-up with your primary care physician for further management. Return to the emergency department if symptoms worsen.
[2021-07-07] MEDS ORDERED: ZOFRAN ODT 4 MG PO ONE (14:14)
[2021-07-07] MEDS ORDERED: ZOFRAN ODT 4 MG ONE (14:22)
--- NOTE | 2021-07-07 15:35 | XRAY ---
Indication: Headache. Multiple contiguous axial images obtained through the head without contrast. Comparison: None Normal appearing brain parenchyma, ventricles, and bony calvarium for patient's age. Visualized paranasal sinuses and mastoid air cells are clear. Impression: Normal CT head without contrast exam.
[2021-07-07] MEDS ORDERED: MORPHINE SULFATE 10 MG/ML IM ONE (15:43)
[2021-07-07] MEDS ORDERED: BENADRYL 50 MG/ML IM ONE (15:44)
[2021-07-07] MEDS ORDERED: solu-MEDROL 125 MG, Sterile H2O 10 ml 2 ML IM ONE ×2 (15:44)
[2021-07-07] MEDS ORDERED: BENADRYL 50 MG/ML ONE (15:59)
[2021-07-07] MEDS ORDERED: MORPHINE SULFATE 10 MG/ML ONE (16:00)
[2021-07-07] MEDS ORDERED: Sterile H2O 10 ml IJ ONE (16:00)
[2021-07-07] MEDS ORDERED: solu-MEDROL ONE (16:00)
[2021-07-07 16:20] VITALS: BP 135/79; PULSE 99; O2SAT 97
== END 2021-07-07 16:20 | disposition home or self-care (01) ==
LOC: ED 13:22
DX: G43.909 Migraine, unspecified, not intractable, without status migrainosus (principal)
CPT/HCPCS: 70450; 96372; 99284; J1200; J2270; J2930; Q0162

== ENCOUNTER 2021-10-30 11:40 | Day surgery (SDC) | payer OTHER ==
--- NOTE | 2021-10-30 09:30 | HP ---
DATE OF SURGERY: 10/30/2021 HISTORY OF PRESENT ILLNESS: The patient is a 51-year-old who was seen by Dr. Vargas for infection in the right breast increasing in size. Reported to have history of mammogram was okay. Her mother has history of breast cancer in the past. PAST MEDICAL HISTORY: Diabetes. Hypertension. PAST SURGICAL HISTORY: section. Tubal ligation. Hysterectomy. Cholecystectomy. MEDICATIONS: Paroxetine, Trulicity, ropinirole, hydrochlorothiazide, temazepam, Basaglar, diclofenac, metoprolol, omeprazole. ALLERGIES: HYDROCODONE. TRAMADOL. FAMILY HISTORY: Heart disease. Breast cancer. Uterine cancer. Bone cancer. SOCIAL HISTORY: No smoking or alcohol abuse. REVIEW OF SYSTEMS: Fourteen systems reviewed. No chest pain or palpitations. Other systems negative or noncontributory as above and per preadmission questionnaire. PHYSICAL EXAMINATION: GENERAL: No acute distress. HEENT: Sclerae nonicteric. NECK: No JVD. CHEST: Equal excursion. BREAST: Right breast indurated area question of ruptured cyst site or nodule. CVS: Regular rate and rhythm. ABDOMEN: Soft. No peritoneal signs. EXTREMITIES: No significant edema. NEURO: Alert, oriented, moving extremities symmetrically. PSYCH: Appropriate mood and affect. IMPRESSION: History of ruptured cyst site or nodule right breast in need of excision. I feel the patient is a candidate. Risks and benefits explained in detail including but not limited to bleeding or infection, risk of wound complications or dehiscence possibly requiring packing, general risk of aches, pains, burning, numbness possible road marker or chronic in nature. What we excise likely will not recur once she heals the wound but she could get similar cyst or nodule adjacent or elsewhere on her body. She understands and agrees to the planned procedure, will proceed with excisional biopsy of right breast nodule or cyst as an outpatient.
[~2021-10-30 11:40] MED LIST changes: -BRIDION 200MG/2ML IV ONE; -DIPRIVAN 200 MG/20 ML IV ONE; -Decadron 4 MG INJ IV ONE; -Lactated Ringers 1,000 ML IV ONE; -Lactated Ringers 1,000 ML IV SCH; -POTASSIUM CHLORIDE 20 mEq IN WATER 100ML 100 ML IV SCH; -Quelicin Fliptop 200 MG/10 ML IV ONE; -SUBLIMAZE 100 MCG/2 ML IV ONE; -TORAdol 30 mg Injection IV ONE; -Versed 2 MG/2 ML Injection IV ONE; -XYLOCAINE 2%/Epi 1:200000 20ML VIAL MPF IJ ONE; -Xylocaine-Mpf 2% 5 Ml Vial IJ ONE; -Zemuron 100 MG/10 ML IV ONE; -Zofran 4 MG/2 ML VIAL IV ONE
[2021-10-30] MEDS ORDERED: TORAdol 30 mg Injection ONE (12:12)
[2021-10-30] MEDS ORDERED: Decadron 4 MG INJ ONE (12:12)
[2021-10-30] MEDS ORDERED: Zofran 4 MG/2 ML VIAL ONE (12:12)
[2021-10-30] MEDS ORDERED: DIPRIVAN 200 MG/20 ML IV ONE (12:12)
[2021-10-30] MEDS ORDERED: Quelicin Fliptop 200 MG/10 ML ONE (12:12)
[2021-10-30] MEDS ORDERED: Xylocaine-Mpf 2% 5 Ml Vial ONE (12:12)
[2021-10-30] MEDS ORDERED: SUBLIMAZE 100 MCG/2 ML ONE ×2 (12:13→13:47)
[2021-10-30] MEDS ORDERED: Versed 2 MG/2 ML Injection ONE (12:13)
[2021-10-30] MEDS ORDERED: Lactated Ringers 1,000 ML IV ONE (12:14)
[2021-10-30] MEDS ORDERED: CEFAZOLIN 2 GM-D5W BAG** 2 GM/50 ML ML IV ONE (12:14)
[2021-10-30] MEDS ORDERED: CEFAZOLIN 2 GM-D5W BAG** 2 GM/50 ML ML IV SCH (12:30)
[2021-10-30] MEDS ORDERED: Lactated Ringers 1,000 ML IV SCH (12:30)
[2021-10-30] MEDS ORDERED: Pre-Attached Lta Kit TP ONE (12:38)
[2021-10-30] MEDS ORDERED: ROBINUL ONE (13:20)
[2021-10-30] MEDS ORDERED: BLOXIVERZ IV ONE (13:20)
[2021-10-30] MEDS ORDERED: Narcan 0.4 MG/ML ONE (13:31)
[2021-10-30 15:23] VITALS: O2SAT 94
[2021-10-30 15:38] VITALS: BP 134/84; PULSE 72
--- NOTE | 2021-10-31 08:40 | OP ---
SURGERY DATE/TIME: 10/30/2021 1250 PREOPERATIVE DIAGNOSIS: History of right breast infection, question ruptured cyst site or infection site in need of excision. POSTOPERATIVE DIAGNOSIS: History of right breast infection, question ruptured cyst site or infection site in need of excision, also including 1.5 cm lipomatous density underlying up above. PROCEDURES: 1) Excisional biopsy of ruptured cyst infection site right breast (approximately 3 cm with margins). 2) Excisional biopsy of underlying approximately 1.5 subcutaneous lipoma underlying the above ruptured cyst or infection site. SURGEON: Dr. Jack Blankenship. ANESTHESIA: General. ESTIMATED BLOOD LOSS: Minimal. INDICATIONS: As noted above. Risks and benefits explained in detail and not limited to and consent obtained. The site had been marked in the preoperative holding area. DESCRIPTION OF PROCEDURE AND FINDINGS: The patient is taken to the operating room. General anesthesia induced. She is prepped and draped in the usual sterile fashion. After official time out and no disagreement with planned procedure, in spindle-shape fashion around where the indurated area from her prior infection. Dissection carried down to the subcutaneous fat beneath and passed the specimen off which measured about 3 cm including margins, passed off for pathology. There appeared to be a 1.5 cm firm lipomatous density directly underlying this. It was felt this should be sent off for pathology as well and sent off separately. Otherwise, the remainder of the tissue appeared to be normal subcutaneous fat and breast parenchyma below that. Good hemostasis noted. The deeper subcu closed with 3-0 Vicryl, superficial subcu closed with 3-0 Vicryl. Skin closed with 4-0 Vicryl. Steri-Strips and sterile dressing applied. The patient tolerated the procedure well. There were no immediate complications. There was no family out in the waiting area to discuss the findings with.
== END 2021-10-30 15:30 | disposition home or self-care (01) ==
LOC: SDC 11:40
PROVIDERS: ATTEND Surgery
DX: D24.1 Benign neoplasm of right breast (principal); Z80.3 Family history of malignant neoplasm of breast
CPT/HCPCS: 82947; J0330; J0690; J1100; J1885; J2250; J2310; J2405; J2704; J2710; J3010

== ENCOUNTER 2023-01-16 08:27 | Observation (INO) | payer BC, OTHER ==
[2023-01-16 09:05] LABS: Absolute Neutrophil Ct (ANC) 6.12 x10^3/uL (1.4-6.9); BASOPHIL % 0.7 % (0.0-0.4); Basophil (Absolute #) 0.08 x10^3/uL (0-0.4); Eosinophil (Absolute #) 0.22 x10^3/uL (0-0.5); IMMATURE GRAN # 0.04 x10^3u/L (0.00-0.03); IMMATURE GRAN % 0.4 % (0.00-0.4); Lymphocyte (Absolute #) 3.65 x10^3/uL (1.0-4.6); Lymphocytes % 33.8 % (24.0-44.0); Mean Cell Volume 82.6 fL (78-100); Mean Corpuscular Hemoglobin 26.3 pg (26-32); Mean Corpuscular Hgb Concent. 31.8 g/dL (32-36); Monocyte (Absolute #) 0.68 x10^3/uL (0.0-1.3); Monocytes % 6.3 % (0.0-12.0); Neutrophil % 56.8 % (36.0-66.0); Platelet Count 339 x10^3/uL (150-450); Red Blood Count 5.33 x10^6/uL (4.1-5.4); White Blood Count 10.8 x10^3/uL (4.0-10.5)
--- NOTE | 2023-01-16 09:11 | XRAY ---
Indication: Chest pain. Comparison: November 18, 2019 Portable apical lordotic chest again demonstrates normal heart and lungs with incidental right hemidiaphragm elevation and tiny left apical calcified granuloma. Bony thorax intact. No new/acute findings.
--- NOTE | 2023-01-16 09:11 | ERPHSYRPT ---
- History of Present Illness Time Seen by Provider: 01/16/23 08:50 Patient Subjective Stated Complaint: C/O intermittent chest pain for the past week that progressed into constant chest pain last night. Pain is constant ach ing with intermittent sharp pains. Triage Nursing Assessment: Patient ambulated back to ER; refused w/c. She is alert and oriented. No SOB. Normal skin tone. [place]. Physician History: Patient is a 52-year-old female with a history of diabetes hypertension presents to emergency department for evaluation of chest pain. Patient advises that her father of heart related problem at age 59. Patient's chest pain started a week ago. Chest pain intermittent for 1 week now constant. Pain associated with nausea and diaphoresis. Patient symptoms are constant. Symptoms are moderate in intensity. No specific worsening or improving factors. Patient voices no other complaints or concerns at this time. Portions of this note were created with voice recognition technology. There may be grammatical, spelling, punctuation or sound alike errors Timing/Duration: today Severity: moderate Modifying Factors: Improves With: nothing Associated Symptoms: denies symptoms Allergies/Adverse Reactions: acetaminophen [From Helper] Allergy (Intermediate, Verified 01/16/23 08:30) Itching hydrocodone [From Helper] Allergy (Intermediate, Verified 01/16/23 08:30) Itching tramadol Allergy (Intermediate, Verified 01/16/23 08:30) Itching Home Medications: Metoprolol Tartrate 25 mg [Lopressor 25MG Tab] 25 mg PO HS 01/17/15 [History] Omeprazole 20 MG [Prilosec 20 mg] 40 mg PO DAILY 01/17/15 [History] Diclofenac Sodium Gel [Voltaren GEL] 1 applic TOP BID 04/17/18 [History] Insulin Glargine,Hum.rec.anlog [Basaglar Kwikpen U-100] 50 unit SQ BID 10/26/21 [History] PARoxetine HCL [Paroxetine HCl] 10 mg PO HS 10/26/21 [History] Ropinirole HCl 1 mg PO HS 10/26/21 [History] Temazepam 15 mg [Restoril 15 MG] 15 mg PO HS 10/26/21 [History] Sitagliptin Phosphate 50 MG [Januvia 50 MG] 100 mg PO DAILY 01/16/23 [History] Tirzepatide [Mounjaro] 2.5 mg SQ WEEKLY 01/16/23 [History] Hx Tetanus, Diphtheria Vaccination/Date Given: Yes Hx Influenza Vaccination/Date Given: No Hx Pneumococcal Vaccination/Date Given: No Immunizations Up to Date: Yes Travel Risk - International Travel Have you traveled outside of the country in past 3 weeks: No - Coronavirus Screening Are you exhibiting any of the following symptoms?: No Close contact with a COVID-19 positive Pt in past 14-21 Days: No - Vaccine Status Have you recieved a Covid-19 vaccination: Yes 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 - Review of Systems Constitutional: No Symptoms, No Fever, No Chills Eyes: No Symptoms Ears, Nose, & Throat: No Symptoms Respiratory: No Symptoms, No Cough, No Dyspnea Cardiac: No Symptoms, No Chest Pain, No Edema, No Syncope Abdominal/Gastrointestinal: No Symptoms, No Abdominal Pain, No Nausea, No Vomiting, No Diarrhea Genitourinary Symptoms: No Symptoms, No Dysuria Musculoskeletal: No Symptoms, No Back Pain, No Neck Pain Skin: No Symptoms, No Rash Neurological: No Symptoms, No Dizziness, No Focal Weakness, No Sensory Changes Psychological: No Symptoms Endocrine: No Symptoms Hematologic/Lymphatic: No Symptoms Immunological/Allergic: No Symptoms All Other Systems: Reviewed and Negative - Past Medical History Pertinent Past Medical History: Yes Neurological History: No Pertinent History ENT History: No Pertinent History Cardiac History: High Cholesterol, Hypertension Respiratory History: No Pertinent History Endocrine Medical History: Diabetes Type II Musculoskeletal History: Degenerative Disk Disease GI Medical History: GERD, Gallbladder Disease History: Other Psycho-Social History: No Pertinent History Female Reproductive Disorders: No Pertinent History, Other Other Medical History: herniated disc lower back, steroid epidural inj for back pain. Hx of frequent UTI's. - Past Surgical History Past Surgical History: Yes Neuro Surgical History: No Pertinent History Cardiac: Cardiac Catheterization Respiratory: No Pertinent History Gastrointestinal: Cholecystectomy Genitourinary: No Pertinent History Musculoskeletal: No Pertinent History Female Surgical History: Hysterectomy, Section, Tubal Ligation - Social History Smoking Status: Never smoker Exposure to second hand smoke: No Drug Use: none Patient Lives Alone: No Significant Family History: heart disease (father) - Nursing Vital Signs Nursing Vital Signs: Initial Vital Signs Temperature 97.5 F 01/16/23 08:35 Pulse Rate 76 01/16/23 08:35 Respiratory Rate 19 01/16/23 08:35 Blood Pressure 158/91 01/16/23 08:35 O2 Sat by Pulse Oximetry 96 01/16/23 08:35 Pain Scale Pain Intensity 5 - Physical Exam General Appearance: no apparent distress, alert Eye Exam: PERRL/EOMI, eyes nml inspection Ears, Nose, Throat Exam: normal ENT inspection, TMs normal, pharynx normal, moist mucous membranes Neck Exam: normal inspection, non-tender, supple, full range of motion Respiratory Exam: normal breath sounds, lungs clear, airway intact, No respiratory distress Cardiovascular Exam: regular rate/rhythm, normal heart sounds, normal peripheral pulses Gastrointestinal/Abdomen Exam: soft, normal bowel sounds, No tenderness, No mass Back Exam: normal inspection, normal range of motion, No CVA tenderness, No vertebral tenderness Extremity Exam: normal inspection, normal range of motion, pelvis stable Neurologic Exam: alert, oriented x 3, cooperative, normal mood/affect, nml cerebellar function, nml station & gait, sensation nml, No motor deficits Skin Exam: normal color, warm, dry, No rash Lymphatic Exam: No adenopathy SpO2 Interpretation: normal SpO2: 96 O2 Delivery: Room Air - Course Nursing assessment & vital signs reviewed: Yes EKG Interpreted by Me: RATE (72), Sinus Rhythm, NORMAL AXIS, NORMAL INTERVALS - Radiology Exams Chest X-ray Interpretation: Teleradiologist Report (No acute findings) Ordered Tests: Active Orders 24 hr Category Date Time Status Director Of Corporate [employer] STAT Care 01/16/23 08:44 Active EKG-ER Only STAT Care 01/16/23 08:42 Active IV Insertion STAT Care 01/16/23 08:42 Active Pulse Oximetry (ED) STAT Care 01/16/23 08:42 Active CHEST 1 VIEW (PORTABLE) Stat Exams 01/16/23 08:44 Completed CBC W DIFF Stat Lab 01/16/23 08:40 Completed CMP Stat Lab 01/16/23 08:40 Completed D-DIMER QUANTITATIVE Stat Lab 01/16/23 08:40 Completed HCG QUALITATIVE, URINE Stat Lab 01/16/23 Ordered NT PRO BNPII Stat Lab 01/16/23 08:40 Completed TROPONIN Q4H Lab 01/16/23 08:40 Completed TROPONIN Q4H Lab 01/16/23 12:45 Ordered TROPONIN Q4H Lab 01/16/23 16:45 Ordered UA W/RFX UR CULTURE Stat Lab 01/16/23 08:43 Ordered Transfer Order Routine Transfer 01/16/23 Ordered Medication Summary Discontinued Medications Generic Name Dose Route Start Last Admin Trade Name Serena PRN Reason Stop Dose Admin Aspirin 324 mg 01/16/23 09:12 01/16/23 09:13 Aspirin 81 Mg Tab.Chew PO 01/16/23 09:13 324 mg STAT ONE Administration Aspirin Confirm 01/16/23 09:37 Aspirin 81 Mg Tab.Chew Administered 01/16/23 09:38 Dose 324 mg .ROUTE .STK-MED ONE Nitroglycerin 0.4 mg 01/16/23 09:12 01/16/23 09:13 Nitroglycerin 0.4 Mg (Ed) 0.4 Mg Tab.Subl SL 01/16/23 09:13 0.4 mg STAT ONE Administration Nitroglycerin Confirm 01/16/23 09:37 Nitroglycerin 0.4 Mg (Ed) 0.4 Mg Tab.Subl Administered 01/16/23 09:38 Dose 0.4 mg SL .STK-MED ONE Potassium Chloride 40 meq 01/16/23 10:20 Potassium Chloride Tab 10 Meq Tab PO 01/16/23 10:21 STAT ONE Lab/Rad Data: Laboratory Result Diagrams 01/16/23 08:40 01/16/23 08:40 Laboratory Results 01/16/23 01/16/23 01/16/23 Range/Units 09:10 08:40 08:40 WBC (4.0-10.5) x10^3/uL RBC (4.1-5.4) x10^6/uL Hgb (12.0-16.0) g/dL Hct (35-47) % MCV (78-100) fL MCH (26-32) pg MCHC (32-36) g/dL RDW (11.5-14.0) % Plt Count (150-450) x10^3/uL MPV (7.5-11.0) fL Gran % (36.0-66.0) % Immature Gran % (Auto) (0.00-0.4) % Nucleat RBC Rel Count (0.00-0.1) % Eos # (Auto) (0-0.5) x10^3/uL Immature Gran # (Auto) (0.00-0.03) x10^3u/L Absolute Lymphs (auto) (1.0-4.6) x10^3/uL Absolute Monos (auto) (0.0-1.3) x10^3/uL Absolute Nucleated RBC (0.00-0.01) x10^3u/L Lymphocytes % (24.0-44.0) % Monocytes % (0.0-12.0) % Eosinophils % (0.00-5.0) % Basophils % (0.0-0.4) % Absolute Granulocytes (1.4-6.9) x10^3/uL Basophils # (0-0.4) x10^3/uL D-Dimer (0.0-0.50) mg/L Sodium (137-145) mmol/L Potassium (3.5-5.1) mmol/L Chloride (98-107) mmol/L Carbon Dioxide (22-30) mmol/L Anion Gap (5-15) MEQ/L BUN (7-17) mg/dL Creatinine (0.52-1.04) mg/dL Estimated GFR ML/MIN Glucose (74-106) mg/dL Calcium (8.4-10.2) mg/dL Total Bilirubin (0.2-1.3) mg/dL AST (14-36) U/L ALT (0-35) U/L Alkaline Phosphatase (38-126) U/L Troponin I < 0.012 (0.000-0.034) ng/mL NT-Pro-B Natriuret Pep 58.8 (<300) pg/mL Serum Total Protein (6.3-8.2) g/dL Albumin (3.5-5.0) g/dL Influenza Type A Ag NEGATIVE (NEGATIVE) Influenza Type B Ag NEGATIVE (NEGATIVE) RSV (PCR) NEGATIVE (NEGATIVE) SARS-CoV-2 (PCR) NEGATIVE (NEGATIVE) 01/16/23 01/16/23 01/16/23 Range/Units 08:40 08:40 08:40 WBC 10.8 H (4.0-10.5) x10^3/uL RBC 5.33 (4.1-5.4) x10^6/uL Hgb 14.0 (12.0-16.0) g/dL Hct 44.0 (35-47) % MCV 82.6 (78-100) fL MCH 26.3 (26-32) pg MCHC 31.8 L (32-36) g/dL RDW 13.0 (11.5-14.0) % Plt Count 339 (150-450) x10^3/uL MPV 11.0 (7.5-11.0) fL Gran % 56.8 (36.0-66.0) % Immature Gran % (Auto) 0.4 (0.00-0.4) % Nucleat RBC Rel Count 0.0 (0.00-0.1) % Eos # (Auto) 0.22 (0-0.5) x10^3/uL Immature Gran # (Auto) 0.04 H (0.00-0.03) x10^3u/L Absolute Lymphs (auto) 3.65 (1.0-4.6) x10^3/uL Absolute Monos (auto) 0.68 (0.0-1.3) x10^3/uL Absolute Nucleated RBC 0.00 (0.00-0.01) x10^3u/L Lymphocytes % 33.8 (24.0-44.0) % Monocytes % 6.3 (0.0-12.0) % Eosinophils % 2.0 (0.00-5.0) % Basophils % 0.7 (0.0-0.4) % Absolute Granulocytes 6.12 (1.4-6.9) x10^3/uL Basophils # 0.08 (0-0.4) x10^3/uL D-Dimer 0.46 (0.0-0.50) mg/L Sodium 141 (137-145) mmol/L Potassium 3.4 L (3.5-5.1) mmol/L Chloride 100 (98-107) mmol/L Carbon Dioxide 32 H (22-30) mmol/L Anion Gap 12.8 (5-15) MEQ/L BUN 15 (7-17) mg/dL Creatinine 0.62 (0.52-1.04) mg/dL Estimated GFR > 60.0 ML/MIN Glucose 113 H (74-106) mg/dL Calcium 8.9 (8.4-10.2) mg/dL Total Bilirubin 0.50 (0.2-1.3) mg/dL AST 44 H (14-36) U/L ALT 49 H (0-35) U/L Alkaline Phosphatase 93 (38-126) U/L Troponin I (0.000-0.034) ng/mL NT-Pro-B Natriuret Pep (<300) pg/mL Serum Total Protein 7.9 (6.3-8.2) g/dL Albumin 4.3 (3.5-5.0) g/dL Influenza Type A Ag (NEGATIVE) Influenza Type B Ag (NEGATIVE) RSV (PCR) (NEGATIVE) SARS-CoV-2 (PCR) (NEGATIVE) - Progress Progress: improved Progress Note: Patient is a 52-year-old female with a history of diabetes, hypertension, significant family history of cardiovascular disease presents to our ED for evaluation of intermittent chest pain now constant. Pain associated with nausea no vomiting. Patient described diaphoresis. EKG normal sinus rhythm. Chest x-ray is negative for acute findings. CBC shows a leukocytosis of 10.8. Patient has no fever or nidus of infection. Chemistry reveals a potassium of 3.4. Oral potassium supplementation ordered. AST ALT is 44 and 49 respectively. D-dimer negative. hCG negative. Troponin negative. Patient received a dose of aspirin 324 mg in our ED. Patient received nitroglycerin sublingual. Patient reported a proved pain from 10 to a 7. Nitropaste applied. Patient reassessed. Patient feels better. In light of patient's past medical history family history and current symptomology patient will be admitted for cardiac rule out. Case discussed with Dr. Randy Prieto who excepts admission to observation. Plan of care discussed with patient. She agrees to admission [facility] for further evaluation and treatment. Portions of this note were created with voice recognition technology. There may be grammatical, spelling, punctuation or sound alike errors Patient's presenting problem is acute. Complexity of problem addressed is moderate. Patient presents with a new diagnosis with uncertain prognosis. Patient's complaint is acute and complicated with systemic manifestation of illness. No critical care time Labs EKG independently reviewed and analyzed by Dr. Martinez. Patient served as independent historian. No outside documents interpreted. Complex of data reviewed and analyzed is moderate. Risk of complication and or risk morbidity/mortality of patient management is high. Patient will be hospitalized for further evaluation and treatment. Plan of care established via this shared decision-making model. 01/16/23 10:34 Counseled pt/family regarding: lab results, diagnosis, rad results - Departure Departure Disposition: Observation Clinical Impression: Chest pain, ACS (acute coronary syndrome), Hypokalemia Condition: Stable Critical Care Time: No Referrals: RANDY PRIETO MD [Primary Care Provider] - Follow up/PCP as directed
[2023-01-16] MEDS ORDERED: Nitrostat 0.4 MG (ED) SL ONE ×2 (09:12→09:37)
[2023-01-16] MEDS ORDERED: BABY ASPIRIN 81 MG CHEW PO ONE (09:12)
[2023-01-16 09:25] LABS: ALBUMIN 4.3 g/dL (3.5-5.0); ALKALINE PHOSPHATASE 93 U/L (38-126); ANION GAP 12.8 MEQ/L (5-15); BLOOD UREA NITROGEN 15 mg/dL (7-17); CHLORIDE 100 mmol/L (98-107); Calcium 8.9 mg/dL (8.4-10.2); Carbon Dioxide 32 mmol/L (22-30); Creatinine 1 0.62 mg/dL (0.52-1.04); EST GLOMERULAR FILTRATION RATE > 60.0 ML/MIN; Glucose 113 mg/dL (74-106); Potassium 3.4 mmol/L (3.5-5.1); SGOT/AST 44 U/L (14-36); SGPT/ALT 49 U/L (0-35); SODIUM 141 mmol/L (137-145); Total Protein 7.9 g/dL (6.3-8.2)
[2023-01-16] MEDS ORDERED: BABY ASPIRIN 81 MG CHEW ONE (09:37)
[2023-01-16 09:47] LABS: INFLUENZA A NEGATIVE (NEGATIVE); INFLUENZA B NEGATIVE (NEGATIVE); RESPIRATORY SYNCTIAL VIRUS NEGATIVE (NEGATIVE); SARS-CoV-2 Xpert Express NEGATIVE (NEGATIVE)
[2023-01-16] MEDS ORDERED: Klor Con PO ONE ×2 (10:20→10:49)
[2023-01-16] MEDS ORDERED: NITRO-BID 2% UD PACKETS TOP ONE (10:26)
[2023-01-16] MEDS ORDERED: NITRO-BID 2% UD PACKETS ONE (10:49)
[2023-01-16] MEDS ORDERED: MAALOX ES 30 ML UNIT DOSE PO PRN (11:08)
[2023-01-16] MEDS ORDERED: Senokot-S Tablet PO PRN (11:08)
[2023-01-16] MEDS ORDERED: Zofran 4 MG/2 ML VIAL IV PRN (11:08)
[2023-01-16] MEDS ORDERED: MILK OF MAGNESIA 30 ML PO PRN (11:08)
[2023-01-16 11:42] LABS: Appearance Clear (Clear); Bacteria None Seen /HPF (None Seen); Bilirubin Negative (Negative); Blood Negative (Negative); Epithelial Cells Rare /HPF (None Seen); Glucose, Urine Negative (Negative); Hyaline Casts NONE SEEN /LPF (0-2); Ketones Negative (Negative); Leukocyte Esterase Negative (Negative); Nitrite Negative (Negative); Ph 7.5 (4.6-8.0); Protein,Urine Dip Negative (Negative); RBC 0-2 /HPF (0-5); Urobilinogen 0.2 mg/dL (0.2); WBC 0-2 /HPF (0-5)
[2023-01-16 12:04] LABS: ADD URINE CULTURE? NO (NO)
[2023-01-16] MEDS: hydroDIURIL 25 MG PO SCH (12:22)
[2023-01-16] MEDS: Protonix 40MG Tablet PO SCH (12:22)
[2023-01-16] MEDS: Lantus Insulin SQ SCH ×2 (12:22→21:22)
[2023-01-16] MEDS: Januvia 50 MG PO SCH (12:22)
[2023-01-16] MEDS ORDERED: Pepcid 20 MG VIAL IV ONE (16:47)
--- NOTE | 2023-01-16 16:47 | PCM.HP ---
History of Present Illness - Chief Complaint Chief Complaint: ACS, Chest pain History of Present Illness: is a 52 year old female with a 2 day history of intermittent chest pain, radiation to the left shoulder with nausea, no shortness of breath. Pain was worse today so came to ER, had pain in the past with a negative heart cath with Dr Canas but it was several years ago, mild pain currently but no distress. The patient is a nonsmoker but has htn, diabetes and a family history of CAD in her father. - Review of Systems Constitutional: No Fever, No Chills Respiratory: No Cough, No Short Of Breath Cardiac: Chest Pain Abdominal/Gastrointestinal: No Abdominal Pain, No Nausea, No Vomiting, No Diarrhea Genitourinary Symptoms: No Dysuria Skin: No Rash All Other Systems: Reviewed and Negative Medications & Allergies Home Medications: Home Medication List Hydrochlorothiazide 25 mg [hydroDIURIL 25 MG] 25 mg PO DAILY #0 tablet 09/22/13 [Rx Confirmed 01/16/23] Metoprolol Tartrate 25 mg [Lopressor 25MG Tab] 25 mg PO HS 01/17/15 [History Confirmed 01/16/23] Omeprazole 20 MG [Prilosec 20 mg] 40 mg PO DAILY 01/17/15 [History Confirmed 01/16/23] Diclofenac Sodium Gel [Voltaren GEL] 1 applic TOP BID 04/17/18 [History Confirmed 01/16/23] Insulin Glargine,Hum.rec.anlog [Basaglar Kwikpen U-100] 50 unit SQ BID 10/26/21 [History Confirmed 01/16/23] PARoxetine HCL [Paroxetine HCl] 10 mg PO HS 10/26/21 [History Confirmed 01/16/23] Ropinirole HCl 2 mg PO HS 10/26/21 [History Confirmed 01/16/23] Temazepam 15 mg [Restoril 15 MG] 15 mg PO HS 10/26/21 [History Confirmed 01/16/23] Ibuprofen [Ibu] 600 mg PO Q6H PRN PRN #14 tablet 10/30/21 [Rx Confirmed 01/16/23] Naproxen 500 mg [Naprosyn 500 MG] 500 mg PO BIDPRN PRN 01/16/23 [History Confirmed 01/16/23] Rosuvastatin Calcium 5 mg PO HS 01/16/23 [History Confirmed 01/16/23] Sitagliptin Phosphate 50 MG [Januvia 50 MG] 100 mg PO DAILY 01/16/23 [History Confirmed 01/16/23] Sitagliptin Phosphate [Januvia] 100 mg PO DAILY 01/16/23 [History Confirmed 01/16/23] Tirzepatide [Mounjaro] 2.5 mg SQ WEEKLY 01/16/23 [History Confirmed 01/16/23] Allergies/Adverse Reactions: Allergies Allergy/AdvReac Type Severity Reaction Status Date / Time acetaminophen [From [facility]] Allergy Intermediate Itching Verified 01/16/23 08:30 hydrocodone [From [facility]] Allergy Intermediate Itching Verified 01/16/23 08:30 tramadol Allergy Intermediate Itching Verified 01/16/23 08:30 - Past Medical History Past Medical History: Yes Neurological History: No Pertinent History ENT History: No Pertinent History Cardiac History: High Cholesterol, Hypertension Respiratory History: No Pertinent History Endocrine Medical History: Diabetes Type II Musculoskelatal History: Degenerative Disk Disease GI Medical History: GERD, Gallbladder Disease History: Other Pyscho-Social History: No Pertinent History Reproductive Disorders: No Pertinent History, Other Comment: herniated disc lower back, steroid epidural inj for back pain in the past. Hx of frequent UTI's. - Female History Hx Last Menstrual Period: hysterectomy Are you now?: No - Past Surgical History Past Surgical History: Yes Neuro Surgical History: No Pertinent History Cardiac History: Cardiac Catheterization Respiratory Surgery: No Pertinent History GI Surgical History: Cholecystectomy Genitourinary Surgical Hx: No Pertinent History Musculskeletal Surgical Hx: No Pertinent History Female Surgical History: Hysterectomy, Section, Tubal Ligation - Social History Smoking Status: Never smoker Exposure to second hand smoke: No Alcohol: None Drug Use: none Significant Family History: heart disease (father) - Physical Exam Vital Signs: Vital Signs - 24 hr Temp Pulse Resp BP Pulse Ox 01/16/23 12:00 96.2 F 62 16 125/63 97 01/16/23 11:18 96.2 F 62 16 125/63 97 01/16/23 11:08 98 01/16/23 10:38 96 01/16/23 10:14 74 14 125/73 96 01/16/23 09:52 75 20 129/78 96 01/16/23 09:08 88 17 149/103 98 01/16/23 08:42 98 01/16/23 08:35 97.5 F 76 19 158/91 96 General Appearance: no apparent distress, obese Neurologic Exam: alert, oriented x 3 Respiratory Exam: normal breath sounds, lungs clear, No respiratory distress Cardiovascular Exam: regular rate/rhythm, normal heart sounds, normal peripheral pulses Gastrointestinal/Abdomen Exam: soft, normal bowel sounds, No tenderness, No mass Extremity Exam: normal inspection, normal range of motion, pelvis stable Skin Exam: normal color, warm, dry, No rash Results - Labs Lab/Micro Results: Lab Results-Last 24 Hours 01/16/23 01/16/23 01/16/23 Range/Units 08:40 08:40 08:40 WBC 10.8 H (4.0-10.5) x10^3/uL RBC 5.33 (4.1-5.4) x10^6/uL Hgb 14.0 (12.0-16.0) g/dL Hct 44.0 (35-47) % MCV 82.6 (78-100) fL MCH 26.3 (26-32) pg MCHC 31.8 L (32-36) g/dL RDW 13.0 (11.5-14.0) % Plt Count 339 (150-450) x10^3/uL MPV 11.0 (7.5-11.0) fL Gran % 56.8 (36.0-66.0) % Immature Gran % (Auto) 0.4 (0.00-0.4) % Nucleat RBC Rel Count 0.0 (0.00-0.1) % Eos # (Auto) 0.22 (0-0.5) x10^3/uL Immature Gran # (Auto) 0.04 H (0.00-0.03) x10^3u/L Absolute Lymphs (auto) 3.65 (1.0-4.6) x10^3/uL Absolute Monos (auto) 0.68 (0.0-1.3) x10^3/uL Absolute Nucleated RBC 0.00 (0.00-0.01) x10^3u/L Lymphocytes % 33.8 (24.0-44.0) % Monocytes % 6.3 (0.0-12.0) % Eosinophils % 2.0 (0.00-5.0) % Basophils % 0.7 (0.0-0.4) % Absolute Granulocytes 6.12 (1.4-6.9) x10^3/uL Basophils # 0.08 (0-0.4) x10^3/uL D-Dimer 0.46 (0.0-0.50) mg/L Sodium 141 (137-145) mmol/L Potassium 3.4 L (3.5-5.1) mmol/L Chloride 100 (98-107) mmol/L Carbon Dioxide 32 H (22-30) mmol/L Anion Gap 12.8 (5-15) MEQ/L BUN 15 (7-17) mg/dL Creatinine 0.62 (0.52-1.04) mg/dL Estimated GFR > 60.0 ML/MIN Glucose 113 H (74-106) mg/dL Calcium 8.9 (8.4-10.2) mg/dL Total Bilirubin 0.50 (0.2-1.3) mg/dL AST 44 H (14-36) U/L ALT 49 H (0-35) U/L Alkaline Phosphatase 93 (38-126) U/L Troponin I (0.000-0.034) ng/mL NT-Pro-B Natriuret Pep (<300) pg/mL Serum Total Protein 7.9 (6.3-8.2) g/dL Albumin 4.3 (3.5-5.0) g/dL Urine Color (Yellow) Urine Appearance (Clear) Urine pH (4.6-8.0) Ur Specific [place] (1.005-1.030) Urine Protein (Negative) Urine Glucose (UA) (Negative) mg/dL Urine Ketones (Negative) Urine Blood (Negative) Urine Nitrite (Negative) Urine Bilirubin (Negative) Urine Urobilinogen (0.2) mg/dL Ur Leukocyte Esterase (Negative) U Hyaline Cast (Auto) (0-2) /LPF Urine Microscopic RBC (0-5) /HPF Urine Microscopic WBC (0-5) /HPF Ur Epithelial Cells (None Seen) /HPF Urine Bacteria (None Seen) /HPF Urine Culture Reflexed (NO) Influenza Type A Ag (NEGATIVE) Influenza Type B Ag (NEGATIVE) RSV (PCR) (NEGATIVE) SARS-CoV-2 (PCR) (NEGATIVE) 01/16/23 01/16/23 01/16/23 Range/Units 08:40 08:40 09:10 WBC (4.0-10.5) x10^3/uL RBC (4.1-5.4) x10^6/uL Hgb (12.0-16.0) g/dL Hct (35-47) % MCV (78-100) fL MCH (26-32) pg MCHC (32-36) g/dL RDW (11.5-14.0) % Plt Count (150-450) x10^3/uL MPV (7.5-11.0) fL Gran % (36.0-66.0) % Immature Gran % (Auto) (0.00-0.4) % Nucleat RBC Rel Count (0.00-0.1) % Eos # (Auto) (0-0.5) x10^3/uL Immature Gran # (Auto) (0.00-0.03) x10^3u/L Absolute Lymphs (auto) (1.0-4.6) x10^3/uL Absolute Monos (auto) (0.0-1.3) x10^3/uL Absolute Nucleated RBC (0.00-0.01) x10^3u/L Lymphocytes % (24.0-44.0) % Monocytes % (0.0-12.0) % Eosinophils % (0.00-5.0) % Basophils % (0.0-0.4) % Absolute Granulocytes (1.4-6.9) x10^3/uL Basophils # (0-0.4) x10^3/uL D-Dimer (0.0-0.50) mg/L Sodium (137-145) mmol/L Potassium (3.5-5.1) mmol/L Chloride (98-107) mmol/L Carbon Dioxide (22-30) mmol/L Anion Gap (5-15) MEQ/L BUN (7-17) mg/dL Creatinine (0.52-1.04) mg/dL Estimated GFR ML/MIN Glucose (74-106) mg/dL Calcium (8.4-10.2) mg/dL Total Bilirubin (0.2-1.3) mg/dL AST (14-36) U/L ALT (0-35) U/L Alkaline Phosphatase (38-126) U/L Troponin I < 0.012 (0.000-0.034) ng/mL NT-Pro-B Natriuret Pep 58.8 (<300) pg/mL Serum Total Protein (6.3-8.2) g/dL Albumin (3.5-5.0) g/dL Urine Color (Yellow) Urine Appearance (Clear) Urine pH (4.6-8.0) Ur Specific [place] (1.005-1.030) Urine Protein (Negative) Urine Glucose (UA) (Negative) mg/dL Urine Ketones (Negative) Urine Blood (Negative) Urine Nitrite (Negative) Urine Bilirubin (Negative) Urine Urobilinogen (0.2) mg/dL Ur Leukocyte Esterase (Negative) U Hyaline Cast (Auto) (0-2) /LPF Urine Microscopic RBC (0-5) /HPF Urine Microscopic WBC (0-5) /HPF Ur Epithelial Cells (None Seen) /HPF Urine Bacteria (None Seen) /HPF Urine Culture Reflexed (NO) Influenza Type A Ag NEGATIVE (NEGATIVE) Influenza Type B Ag NEGATIVE (NEGATIVE) RSV (PCR) NEGATIVE (NEGATIVE) SARS-CoV-2 (PCR) NEGATIVE (NEGATIVE) 01/16/23 01/16/23 Range/Units 10:48 11:50 WBC (4.0-10.5) x10^3/uL RBC (4.1-5.4) x10^6/uL Hgb (12.0-16.0) g/dL Hct (35-47) % MCV (78-100) fL MCH (26-32) pg MCHC (32-36) g/dL RDW (11.5-14.0) % Plt Count (150-450) x10^3/uL MPV (7.5-11.0) fL Gran % (36.0-66.0) % Immature Gran % (Auto) (0.00-0.4) % Nucleat RBC Rel Count (0.00-0.1) % Eos # (Auto) (0-0.5) x10^3/uL Immature Gran # (Auto) (0.00-0.03) x10^3u/L Absolute Lymphs (auto) (1.0-4.6) x10^3/uL Absolute Monos (auto) (0.0-1.3) x10^3/uL Absolute Nucleated RBC (0.00-0.01) x10^3u/L Lymphocytes % (24.0-44.0) % Monocytes % (0.0-12.0) % Eosinophils % (0.00-5.0) % Basophils % (0.0-0.4) % Absolute Granulocytes (1.4-6.9) x10^3/uL Basophils # (0-0.4) x10^3/uL D-Dimer (0.0-0.50) mg/L Sodium (137-145) mmol/L Potassium (3.5-5.1) mmol/L Chloride (98-107) mmol/L Carbon Dioxide (22-30) mmol/L Anion Gap (5-15) MEQ/L BUN (7-17) mg/dL Creatinine (0.52-1.04) mg/dL Estimated GFR ML/MIN Glucose (74-106) mg/dL Calcium (8.4-10.2) mg/dL Total Bilirubin (0.2-1.3) mg/dL AST (14-36) U/L ALT (0-35) U/L Alkaline Phosphatase (38-126) U/L Troponin I < 0.012 (0.000-0.034) ng/mL NT-Pro-B Natriuret Pep (<300) pg/mL Serum Total Protein (6.3-8.2) g/dL Albumin (3.5-5.0) g/dL Urine Color Yellow (Yellow) Urine Appearance Clear (Clear) Urine pH 7.5 (4.6-8.0) Ur Specific [place] 1.010 (1.005-1.030) Urine Protein Negative (Negative) Urine Glucose (UA) Negative (Negative) mg/dL Urine Ketones Negative (Negative) Urine Blood Negative (Negative) Urine Nitrite Negative (Negative) Urine Bilirubin Negative (Negative) Urine Urobilinogen 0.2 (0.2) mg/dL Ur Leukocyte Esterase Negative (Negative) U Hyaline Cast (Auto) NONE SEEN (0-2) /LPF Urine Microscopic RBC 0-2 (0-5) /HPF Urine Microscopic WBC 0-2 (0-5) /HPF Ur Epithelial Cells Rare (None Seen) /HPF Urine Bacteria None Seen (None Seen) /HPF Urine Culture Reflexed NO (NO) Influenza Type A Ag (NEGATIVE) Influenza Type B Ag (NEGATIVE) RSV (PCR) (NEGATIVE) SARS-CoV-2 (PCR) (NEGATIVE) - Radiology Impressions Radiology Exams & Impressions: Radiology Procedures Category Date Time Status CHEST 1 VIEW (PORTABLE) Stat Exams 01/16/23 08:44 Completed - Other Procedures and Tests Respiratory Therapy 01/17/23 05:00 EKG ROUTINE 01/18/23 05:00 EKG ROUTINE 01/19/23 05:00 EKG ROUTINE Assessment/Plan (1) Chest pain Current Visit: Yes Status: Acute Assessment & Plan: r/o MS, check lipids in am and a1c for risk factor modification. continue aspirin therapy and will f/u with cardiology after discharge. Code(s): R07.9 - CHEST PAIN, UNSPECIFIED (2) GERD (gastroesophageal reflux disease) Current Visit: No Status: Acute Assessment & Plan: add IV pepcid Code(s): K21.9 - GASTRO-ESOPHAGEAL REFLUX DISEASE WITHOUT ESOPHAGITIS (3) Diabetes Current Visit: Yes Status: Acute Code(s): E11.9 - TYPE 2 DIABETES MELLITUS WITHOUT COMPLICATIONS
[2023-01-16] MEDS ORDERED: Restoril 15 MG PO SCH (22:00)
[2023-01-16] MEDS ORDERED: NON-FORMULARY ITEM (Paroxetine Hcl [Paroxetine Hcl] 10 MG Tablet) PO SCH (22:00)
[2023-01-16] MEDS ORDERED: NON-FORMULARY ITEM (Rosuvastatin Calcium [Rosuvastatin Calcium] 5 MG Tablet) PO SCH (22:00)
[2023-01-16] MEDS ORDERED: Paxil 20 MG PO SCH (22:00)
[2023-01-16] MEDS ORDERED: Lopressor 25MG Tab PO SCH (22:00)
[2023-01-16] MEDS ORDERED: Zocor 10MG PO SCH (22:00)
[2023-01-16] MEDS ORDERED: REQUIP 2MG TAB PO SCH (22:00)
[2023-01-16] MEDS ORDERED: NON-FORMULARY ITEM (Ropinirole Hcl [Ropinirole Hcl] 1 MG Tablet) PO SCH (22:00)
[2023-01-16] MEDS ORDERED: NON-FORMULARY ITEM (Insulin Glargine,Hum.Rec.Anlog [Basaglar Kwikpen U-100] 100 UNIT/ML In SQ SCH (22:00)
[2023-01-16] MEDS: MORPHINE SULFATE 4 MG INJ IV PRN (22:30)
[2023-01-17] MEDS: MORPHINE SULFATE 4 MG INJ IV PRN (05:02)
[2023-01-17 05:38] LABS: BASOPHIL % 0.7 % (0.0-0.4); Basophil (Absolute #) 0.06 x10^3/uL (0-0.4); Eosinophil % 2.1 % (0.00-5.0); Eosinophil (Absolute #) 0.19 x10^3/uL (0-0.5); Hematocrit 44.3 % (35-47); IMMATURE GRAN # 0.03 x10^3u/L (0.00-0.03); IMMATURE GRAN % 0.3 % (0.00-0.4); Lymphocytes % 40.6 % (24.0-44.0); Mean Cell Volume 83.3 fL (78-100); Mean Corpuscular Hemoglobin 26.3 pg (26-32); Mean Corpuscular Hgb Concent. 31.6 g/dL (32-36); Mean Platelet Volume 11.4 fL (7.5-11.0); Monocyte (Absolute #) 0.63 x10^3/uL (0.0-1.3); Monocytes % 6.9 % (0.0-12.0); Neutrophil % 49.4 % (36.0-66.0); Platelet Count 325 x10^3/uL (150-450); Red Blood Count 5.32 x10^6/uL (4.1-5.4); Red Cell Distribution Width 13.4 % (11.5-14.0); White Blood Count 9.1 x10^3/uL (4.0-10.5)
[2023-01-17 06:02] LABS: ALBUMIN 4.1 g/dL (3.5-5.0); ALKALINE PHOSPHATASE 86 U/L (38-126); ANION GAP 11.9 MEQ/L (5-15); BLOOD UREA NITROGEN 16 mg/dL (7-17); CHLORIDE 99 mmol/L (98-107); Calcium 8.8 mg/dL (8.4-10.2); Carbon Dioxide 34 mmol/L (22-30); Cholesterol 171 mg/dL (50-200); Creatinine 1 0.77 mg/dL (0.52-1.04); EST GLOMERULAR FILTRATION RATE > 60.0 ML/MIN; Glucose 101 mg/dL (74-106); HDL CHOLESTEROL 54 mg/dL (40-60); LDL, DIRECT 81 mg/dL (30-100); Potassium 3.2 mmol/L (3.5-5.1); Risk Ratio 3.2; SGOT/AST 43 U/L (14-36); SGPT/ALT 48 U/L (0-35); SODIUM 142 mmol/L (137-145); TRIGLYCERIDE 135 mg/dL (30-150); Total Protein 7.8 g/dL (6.3-8.2)
[2023-01-17 08:40] VITALS: BP 127/71; PULSE 64; O2SAT 97
[2023-01-17] MEDS: Januvia 50 MG PO SCH (09:02)
[2023-01-17] MEDS: Protonix 40MG Tablet PO SCH (09:03)
[2023-01-17] MEDS: hydroDIURIL 25 MG PO SCH (09:03)
[2023-01-17] MEDS ORDERED: K-LYTE PO ONE (09:08)
--- NOTE | 2023-01-17 09:14 | PCM.DS ---
Discharge Summary Date of Admission: 01/16/23 11:03 Admitting Physician: GWYN JUAREZ Primary Care Provider: GWYN JUAREZ Allergies Allergies acetaminophen [From [place]] Allergy (Intermediate, Verified 01/16/23 08:30) Itching hydrocodone [From [place]] Allergy (Intermediate, Verified 01/16/23 08:30) Itching tramadol Allergy (Intermediate, Verified 01/16/23 08:30) Itching Hospital Summary - Hospital Course Hospital Course: patient admitted with chest pain, hx dm type 2 and htn. WA ruled out, she has no chest pain at the time of discharge. saw Dr Canas previously but requesting to f/u with Dr Jad Cruz - Vitals & Intake/Output Vital Signs: Vital Signs Temperature 96.6 F 01/17/23 08:00 Pulse Rate 64 01/17/23 08:00 Respiratory Rate 17 01/17/23 08:00 Blood Pressure 127/71 01/17/23 08:00 O2 Sat by Pulse Oximetry 97 01/17/23 08:00 Intake & Output: Intake & Output 01/14/23 01/15/23 01/16/23 01/17/23 11:59 11:59 11:59 11:59 Intake Total 1560 Balance 1560 Weight 99.9 kg 99.9 kg - Lab Result Diagrams: 01/17/23 04:46 01/17/23 04:46 Lab Results-Last 24 Hrs: Lab Results-Last 24 Hours 01/16/23 01/16/23 01/16/23 Range/Units 08:40 08:40 08:40 WBC 10.8 H (4.0-10.5) x10^3/uL RBC 5.33 (4.1-5.4) x10^6/uL Hgb 14.0 (12.0-16.0) g/dL Hct 44.0 (35-47) % MCV 82.6 (78-100) fL MCH 26.3 (26-32) pg MCHC 31.8 L (32-36) g/dL RDW 13.0 (11.5-14.0) % Plt Count 339 (150-450) x10^3/uL MPV 11.0 (7.5-11.0) fL Gran % 56.8 (36.0-66.0) % Immature Gran % (Auto) 0.4 (0.00-0.4) % Nucleat RBC Rel Count 0.0 (0.00-0.1) % Eos # (Auto) 0.22 (0-0.5) x10^3/uL Immature Gran # (Auto) 0.04 H (0.00-0.03) x10^3u/L Absolute Lymphs (auto) 3.65 (1.0-4.6) x10^3/uL Absolute Monos (auto) 0.68 (0.0-1.3) x10^3/uL Absolute Nucleated RBC 0.00 (0.00-0.01) x10^3u/L Lymphocytes % 33.8 (24.0-44.0) % Monocytes % 6.3 (0.0-12.0) % Eosinophils % 2.0 (0.00-5.0) % Basophils % 0.7 (0.0-0.4) % Absolute Granulocytes 6.12 (1.4-6.9) x10^3/uL Basophils # 0.08 (0-0.4) x10^3/uL D-Dimer 0.46 (0.0-0.50) mg/L Sodium 141 (137-145) mmol/L Potassium 3.4 L (3.5-5.1) mmol/L Chloride 100 (98-107) mmol/L Carbon Dioxide 32 H (22-30) mmol/L Anion Gap 12.8 (5-15) MEQ/L BUN 15 (7-17) mg/dL Creatinine 0.62 (0.52-1.04) mg/dL Estimated GFR > 60.0 ML/MIN Glucose 113 H (74-106) mg/dL Hemoglobin A1c (4.5-6.0) % Calcium 8.9 (8.4-10.2) mg/dL Total Bilirubin 0.50 (0.2-1.3) mg/dL AST 44 H (14-36) U/L ALT 49 H (0-35) U/L Alkaline Phosphatase 93 (38-126) U/L Troponin I (0.000-0.034) ng/mL NT-Pro-B Natriuret Pep (<300) pg/mL Serum Total Protein 7.9 (6.3-8.2) g/dL Albumin 4.3 (3.5-5.0) g/dL Triglycerides (30-150) mg/dL Cholesterol (50-200) mg/dL LDL Cholesterol (30-100) mg/dL HDL Cholesterol (40-60) mg/dL Heart Disease Risk Ratio Urine Color (Yellow) Urine Appearance (Clear) Urine pH (4.6-8.0) Ur Specific [place] (1.005-1.030) Urine Protein (Negative) Urine Glucose (UA) (Negative) mg/dL Urine Ketones (Negative) Urine Blood (Negative) Urine Nitrite (Negative) Urine Bilirubin (Negative) Urine Urobilinogen (0.2) mg/dL Ur Leukocyte Esterase (Negative) U Hyaline Cast (Auto) (0-2) /LPF Urine Microscopic RBC (0-5) /HPF Urine Microscopic WBC (0-5) /HPF Ur Epithelial Cells (None Seen) /HPF Urine Bacteria (None Seen) /HPF Urine Culture Reflexed (NO) Influenza Type A Ag (NEGATIVE) Influenza Type B Ag (NEGATIVE) RSV (PCR) (NEGATIVE) SARS-CoV-2 (PCR) (NEGATIVE) 01/16/23 01/16/23 01/16/23 Range/Units 08:40 08:40 09:10 WBC (4.0-10.5) x10^3/uL RBC (4.1-5.4) x10^6/uL Hgb (12.0-16.0) g/dL Hct (35-47) % MCV (78-100) fL MCH (26-32) pg MCHC (32-36) g/dL RDW (11.5-14.0) % Plt Count (150-450) x10^3/uL MPV (7.5-11.0) fL Gran % (36.0-66.0) % Immature Gran % (Auto) (0.00-0.4) % Nucleat RBC Rel Count (0.00-0.1) % Eos # (Auto) (0-0.5) x10^3/uL Immature Gran # (Auto) (0.00-0.03) x10^3u/L Absolute Lymphs (auto) (1.0-4.6) x10^3/uL Absolute Monos (auto) (0.0-1.3) x10^3/uL Absolute Nucleated RBC (0.00-0.01) x10^3u/L Lymphocytes % (24.0-44.0) % Monocytes % (0.0-12.0) % Eosinophils % (0.00-5.0) % Basophils % (0.0-0.4) % Absolute Granulocytes (1.4-6.9) x10^3/uL Basophils # (0-0.4) x10^3/uL D-Dimer (0.0-0.50) mg/L Sodium (137-145) mmol/L Potassium (3.5-5.1) mmol/L Chloride (98-107) mmol/L Carbon Dioxide (22-30) mmol/L Anion Gap (5-15) MEQ/L BUN (7-17) mg/dL Creatinine (0.52-1.04) mg/dL Estimated GFR ML/MIN Glucose (74-106) mg/dL Hemoglobin A1c (4.5-6.0) % Calcium (8.4-10.2) mg/dL Total Bilirubin (0.2-1.3) mg/dL AST (14-36) U/L ALT (0-35) U/L Alkaline Phosphatase (38-126) U/L Troponin I < 0.012 (0.000-0.034) ng/mL NT-Pro-B Natriuret Pep 58.8 (<300) pg/mL Serum Total Protein (6.3-8.2) g/dL Albumin (3.5-5.0) g/dL Triglycerides (30-150) mg/dL Cholesterol (50-200) mg/dL LDL Cholesterol (30-100) mg/dL HDL Cholesterol (40-60) mg/dL Heart Disease Risk Ratio Urine Color (Yellow) Urine Appearance (Clear) Urine pH (4.6-8.0) Ur Specific [place] (1.005-1.030) Urine Protein (Negative) Urine Glucose (UA) (Negative) mg/dL Urine Ketones (Negative) Urine Blood (Negative) Urine Nitrite (Negative) Urine Bilirubin (Negative) Urine Urobilinogen (0.2) mg/dL Ur Leukocyte Esterase (Negative) U Hyaline Cast (Auto) (0-2) /LPF Urine Microscopic RBC (0-5) /HPF Urine Microscopic WBC (0-5) /HPF Ur Epithelial Cells (None Seen) /HPF Urine Bacteria (None Seen) /HPF Urine Culture Reflexed (NO) Influenza Type A Ag NEGATIVE (NEGATIVE) Influenza Type B Ag NEGATIVE (NEGATIVE) RSV (PCR) NEGATIVE (NEGATIVE) SARS-CoV-2 (PCR) NEGATIVE (NEGATIVE) 01/16/23 01/16/23 01/16/23 Range/Units 10:48 11:50 17:35 WBC (4.0-10.5) x10^3/uL RBC (4.1-5.4) x10^6/uL Hgb (12.0-16.0) g/dL Hct (35-47) % MCV (78-100) fL MCH (26-32) pg MCHC (32-36) g/dL RDW (11.5-14.0) % Plt Count (150-450) x10^3/uL MPV (7.5-11.0) fL Gran % (36.0-66.0) % Immature Gran % (Auto) (0.00-0.4) % Nucleat RBC Rel Count (0.00-0.1) % Eos # (Auto) (0-0.5) x10^3/uL Immature Gran # (Auto) (0.00-0.03) x10^3u/L Absolute Lymphs (auto) (1.0-4.6) x10^3/uL Absolute Monos (auto) (0.0-1.3) x10^3/uL Absolute Nucleated RBC (0.00-0.01) x10^3u/L Lymphocytes % (24.0-44.0) % Monocytes % (0.0-12.0) % Eosinophils % (0.00-5.0) % Basophils % (0.0-0.4) % Absolute Granulocytes (1.4-6.9) x10^3/uL Basophils # (0-0.4) x10^3/uL D-Dimer (0.0-0.50) mg/L Sodium (137-145) mmol/L Potassium (3.5-5.1) mmol/L Chloride (98-107) mmol/L Carbon Dioxide (22-30) mmol/L Anion Gap (5-15) MEQ/L BUN (7-17) mg/dL Creatinine (0.52-1.04) mg/dL Estimated GFR ML/MIN Glucose (74-106) mg/dL Hemoglobin A1c (4.5-6.0) % Calcium (8.4-10.2) mg/dL Total Bilirubin (0.2-1.3) mg/dL AST (14-36) U/L ALT (0-35) U/L Alkaline Phosphatase (38-126) U/L Troponin I < 0.012 < 0.012 (0.000-0.034) ng/mL NT-Pro-B Natriuret Pep (<300) pg/mL Serum Total Protein (6.3-8.2) g/dL Albumin (3.5-5.0) g/dL Triglycerides (30-150) mg/dL Cholesterol (50-200) mg/dL LDL Cholesterol (30-100) mg/dL HDL Cholesterol (40-60) mg/dL Heart Disease Risk Ratio Urine Color Yellow (Yellow) Urine Appearance Clear (Clear) Urine pH 7.5 (4.6-8.0) Ur Specific [place] 1.010 (1.005-1.030) Urine Protein Negative (Negative) Urine Glucose (UA) Negative (Negative) mg/dL Urine Ketones Negative (Negative) Urine Blood Negative (Negative) Urine Nitrite Negative (Negative) Urine Bilirubin Negative (Negative) Urine Urobilinogen 0.2 (0.2) mg/dL Ur Leukocyte Esterase Negative (Negative) U Hyaline Cast (Auto) NONE SEEN (0-2) /LPF Urine Microscopic RBC 0-2 (0-5) /HPF Urine Microscopic WBC 0-2 (0-5) /HPF Ur Epithelial Cells Rare (None Seen) /HPF Urine Bacteria None Seen (None Seen) /HPF Urine Culture Reflexed NO (NO) Influenza Type A Ag (NEGATIVE) Influenza Type B Ag (NEGATIVE) RSV (PCR) (NEGATIVE) SARS-CoV-2 (PCR) (NEGATIVE) 01/16/23 01/17/23 01/17/23 Range/Units 17:35 04:46 04:46 WBC 9.1 (4.0-10.5) x10^3/uL RBC 5.32 (4.1-5.4) x10^6/uL Hgb 14.0 (12.0-16.0) g/dL Hct 44.3 (35-47) % MCV 83.3 (78-100) fL MCH 26.3 (26-32) pg MCHC 31.6 L (32-36) g/dL RDW 13.4 (11.5-14.0) % Plt Count 325 (150-450) x10^3/uL MPV 11.4 H (7.5-11.0) fL Gran % 49.4 (36.0-66.0) % Immature Gran % (Auto) 0.3 (0.00-0.4) % Nucleat RBC Rel Count 0.0 (0.00-0.1) % Eos # (Auto) 0.19 (0-0.5) x10^3/uL Immature Gran # (Auto) 0.03 (0.00-0.03) x10^3u/L Absolute Lymphs (auto) 3.70 (1.0-4.6) x10^3/uL Absolute Monos (auto) 0.63 (0.0-1.3) x10^3/uL Absolute Nucleated RBC 0.00 (0.00-0.01) x10^3u/L Lymphocytes % 40.6 (24.0-44.0) % Monocytes % 6.9 (0.0-12.0) % Eosinophils % 2.1 (0.00-5.0) % Basophils % 0.7 (0.0-0.4) % Absolute Granulocytes 4.50 (1.4-6.9) x10^3/uL Basophils # 0.06 (0-0.4) x10^3/uL D-Dimer (0.0-0.50) mg/L Sodium 142 (137-145) mmol/L Potassium 3.2 L (3.5-5.1) mmol/L Chloride 99 (98-107) mmol/L Carbon Dioxide 34 H (22-30) mmol/L Anion Gap 11.9 (5-15) MEQ/L BUN 16 (7-17) mg/dL Creatinine 0.77 (0.52-1.04) mg/dL Estimated GFR > 60.0 ML/MIN Glucose 101 (74-106) mg/dL Hemoglobin A1c 6.77 H (4.5-6.0) % Calcium 8.8 (8.4-10.2) mg/dL Total Bilirubin 0.60 (0.2-1.3) mg/dL AST 43 H (14-36) U/L ALT 48 H (0-35) U/L Alkaline Phosphatase 86 (38-126) U/L Troponin I (0.000-0.034) ng/mL NT-Pro-B Natriuret Pep (<300) pg/mL Serum Total Protein 7.8 (6.3-8.2) g/dL Albumin 4.1 (3.5-5.0) g/dL Triglycerides 135 (30-150) mg/dL Cholesterol 171 (50-200) mg/dL LDL Cholesterol 81 (30-100) mg/dL HDL Cholesterol 54 (40-60) mg/dL Heart Disease Risk Ratio 3.2 Urine Color (Yellow) Urine Appearance (Clear) Urine pH (4.6-8.0) Ur Specific [place] (1.005-1.030) Urine Protein (Negative) Urine Glucose (UA) (Negative) mg/dL Urine Ketones (Negative) Urine Blood (Negative) Urine Nitrite (Negative) Urine Bilirubin (Negative) Urine Urobilinogen (0.2) mg/dL Ur Leukocyte Esterase (Negative) U Hyaline Cast (Auto) (0-2) /LPF Urine Microscopic RBC (0-5) /HPF Urine Microscopic WBC (0-5) /HPF Ur Epithelial Cells (None Seen) /HPF Urine Bacteria (None Seen) /HPF Urine Culture Reflexed (NO) Influenza Type A Ag (NEGATIVE) Influenza Type B Ag (NEGATIVE) RSV (PCR) (NEGATIVE) SARS-CoV-2 (PCR) (NEGATIVE) 01/17/23 Range/Units 04:46 WBC (4.0-10.5) x10^3/uL RBC (4.1-5.4) x10^6/uL Hgb (12.0-16.0) g/dL Hct (35-47) % MCV (78-100) fL MCH (26-32) pg MCHC (32-36) g/dL RDW (11.5-14.0) % Plt Count (150-450) x10^3/uL MPV (7.5-11.0) fL Gran % (36.0-66.0) % Immature Gran % (Auto) (0.00-0.4) % Nucleat RBC Rel Count (0.00-0.1) % Eos # (Auto) (0-0.5) x10^3/uL Immature Gran # (Auto) (0.00-0.03) x10^3u/L Absolute Lymphs (auto) (1.0-4.6) x10^3/uL Absolute Monos (auto) (0.0-1.3) x10^3/uL Absolute Nucleated RBC (0.00-0.01) x10^3u/L Lymphocytes % (24.0-44.0) % Monocytes % (0.0-12.0) % Eosinophils % (0.00-5.0) % Basophils % (0.0-0.4) % Absolute Granulocytes (1.4-6.9) x10^3/uL Basophils # (0-0.4) x10^3/uL D-Dimer (0.0-0.50) mg/L Sodium (137-145) mmol/L Potassium (3.5-5.1) mmol/L Chloride (98-107) mmol/L Carbon Dioxide (22-30) mmol/L Anion Gap (5-15) MEQ/L BUN (7-17) mg/dL Creatinine (0.52-1.04) mg/dL Estimated GFR ML/MIN Glucose (74-106) mg/dL Hemoglobin A1c (4.5-6.0) % Calcium (8.4-10.2) mg/dL Total Bilirubin (0.2-1.3) mg/dL AST (14-36) U/L ALT (0-35) U/L Alkaline Phosphatase (38-126) U/L Troponin I < 0.012 (0.000-0.034) ng/mL NT-Pro-B Natriuret Pep (<300) pg/mL Serum Total Protein (6.3-8.2) g/dL Albumin (3.5-5.0) g/dL Triglycerides (30-150) mg/dL Cholesterol (50-200) mg/dL LDL Cholesterol (30-100) mg/dL HDL Cholesterol (40-60) mg/dL Heart Disease Risk Ratio Urine Color (Yellow) Urine Appearance (Clear) Urine pH (4.6-8.0) Ur Specific [place] (1.005-1.030) Urine Protein (Negative) Urine Glucose (UA) (Negative) mg/dL Urine Ketones (Negative) Urine Blood (Negative) Urine Nitrite (Negative) Urine Bilirubin (Negative) Urine Urobilinogen (0.2) mg/dL Ur Leukocyte Esterase (Negative) U Hyaline Cast (Auto) (0-2) /LPF Urine Microscopic RBC (0-5) /HPF Urine Microscopic WBC (0-5) /HPF Ur Epithelial Cells (None Seen) /HPF Urine Bacteria (None Seen) /HPF Urine Culture Reflexed (NO) Influenza Type A Ag (NEGATIVE) Influenza Type B Ag (NEGATIVE) RSV (PCR) (NEGATIVE) SARS-CoV-2 (PCR) (NEGATIVE) Micro Results-Entire Visit: Accuchecks Date 01/17/23 Date 01/16/23 Date 01/16/23 Time 08:34 Time 16:52 - Radiology Exams Ordered Rad Exams-Entire Visit: Radiology Procedures Category Date Time Status CHEST 1 VIEW (PORTABLE) Stat Exams 01/16/23 08:44 Completed - Procedures and Test Procedures and Tests throughout Hospitalization: Therapy Orders & Screens 01/16/23 11:08 EKG Q8HX2,QAMX3,PRN Comment: 01/16/23 16:30 EKG ROUTINE Comment: Diagnosis: ACS, Chest pain 01/17/23 05:00 EKG ROUTINE Comment: Diagnosis: ACS, Chest pain 01/18/23 05:00 EKG ROUTINE Comment: Diagnosis: ACS, Chest pain 01/19/23 05:00 EKG ROUTINE Comment: Diagnosis: ACS, Chest pain Discharge Exam General Appearance: no apparent distress Neurologic Exam: alert, oriented x 3 Respiratory Exam: normal breath sounds, lungs clear, No respiratory distress Cardiovascular Exam: regular rate/rhythm, normal heart sounds Gastrointestinal/Abdomen Exam: soft, No tenderness, No mass Final Diagnosis/Problem List - Final Discharge Diagnosis/Problem (1) Chest pain Current Visit: Yes Status: Acute Assessment & Plan: [place] ruled out, plan outpatient stress test and cardiology followup. add 81mg ASA Code(s): R07.9 - CHEST PAIN, UNSPECIFIED (2) GERD (gastroesophageal reflux disease) Current Visit: No Status: Acute Code(s): K21.9 - GASTRO-ESOPHAGEAL REFLUX DISEASE WITHOUT ESOPHAGITIS (3) Diabetes Current Visit: Yes Status: Acute Assessment & Plan: excellent control, a1c 6.7% LDL 81, continue statin Code(s): E11.9 - TYPE 2 DIABETES MELLITUS WITHOUT COMPLICATIONS - Discharge Disposition: Home, Self-Care Condition: Stable Prescriptions: New Aspirin EC 81 mg [Ecotrin 81 mg] 81 mg PO DAILY #30 tablet Continue Hydrochlorothiazide 25 mg [hydroDIURIL 25 MG] 25 mg PO DAILY #0 tablet Metoprolol Tartrate 25 mg [Lopressor 25MG Tab] 25 mg PO HS Omeprazole 20 MG [Prilosec 20 mg] 40 mg PO DAILY Diclofenac Sodium Gel [Voltaren GEL] 1 applic TOP BID Temazepam 15 mg [Restoril 15 MG] 15 mg PO HS Ropinirole HCl 2 mg PO HS PARoxetine HCL [Paroxetine HCl] 10 mg PO HS Insulin Glargine,Hum.rec.anlog [Basaglar Kwikpen U-100] 50 unit SQ BID Ibuprofen [Ibu] 600 mg PO Q6H PRN PRN #14 tablet PRN Reason: Pain Tirzepatide [Mounjaro] 2.5 mg SQ WEEKLY Sitagliptin Phosphate 50 MG [Januvia 50 MG] 100 mg PO DAILY Sitagliptin Phosphate [Januvia] 100 mg PO DAILY Naproxen 500 mg [Naprosyn 500 MG] 500 mg PO BIDPRN PRN PRN Reason: Pain Rosuvastatin Calcium 5 mg PO HS Outpatient Orders: Stress Test: Cardiolyte Facility: [facility], Location: [facility] Follow up with: GWYN JUAREZ MD [Primary Care Provider] - JAD CRUZ MD [CONSULTING PHYSICIAN] - Call for Appointment
[2023-01-17] MEDS: Lantus Insulin SQ SCH (09:19)
[2023-01-17] MEDS ORDERED: NON-FORMULARY ITEM (Omeprazole 20 Mg [Prilosec 20 Mg] 20 MG Capsule.Dr) PO SCH (10:00)
[2023-01-17] MEDS ORDERED: ECOTRIN 81 MG PO SCH (10:00)
== END 2023-01-17 10:10 | disposition home or self-care (01) ==
LOC: ED 08:27 → MED SURG 11:03
PROVIDERS: ADMIT Family Medicine; ATTEND Family Medicine
DX: R07.9 Chest pain, unspecified (principal); K21.9 Gastro-esophageal reflux disease without esophagitis; I10 Essential (primary) hypertension; E11.9 Type 2 diabetes mellitus without complications; Z79.899 Other long term (current) drug therapy; Z82.49 Family history of ischemic heart disease and other diseases of the circulatory system
CPT/HCPCS: 0241U; 36000; 36415; 71045; 80053; 80061; 81001; 83036; 83721; 83880; 84484; 85025; 85379; 93005; 93041; 93268; 94760; 99285; G0378; J2270; A9270-GY

== ENCOUNTER 2023-10-04 12:45 | Emergency (ER) | payer BC ==
--- NOTE | 2023-10-04 12:50 | ERPHSYRPT ---
- History of Present Illness Time Seen by Provider: 10/04/23 12:49 Historian: patient Exam Limitations: no limitations Physician History: This is a 53-year-old white female patient of Dr. Juarez who presents to the emergency department with 2 to 3-day history abdominal pain vomiting and diarrhea. She states initially she had constipation and then this changed to vomiting and diarrhea. Patient has history of cholecystectomy and total abdominal hysterectomy with bilateral salpingo-oophorectomy. She underwent a plain film of her abdomen to rule out any type of renal stone. Per patient report, this study was negative. She was told that her potassium was low. She was told that this may be causing abdominal wall muscular cramping. Patient describes the pain as deep, intermittent right lower quadrant sharp pain. Patient has a history of diabetes, hyperlipidemia, gastroesophageal reflux disease and hypertension. Timing/Duration: day(s) (2 to 3 days), intermittent, worse Quality: sharpness, stabbing Abdominal Pain Onset Location: RLQ Pain Radiation: no radiation Severity of Pain-Max: moderate Severity of Pain-Current: moderate Associated Symptoms: diarrhea, loss of appetite, nausea, vomiting Previous symptoms: no prior history, recently seen, no recent treatment Allergies/Adverse Reactions: acetaminophen [From [place]] Allergy (Intermediate, Verified 10/04/23 13:07) Itching hydrocodone [From [place]] Allergy (Intermediate, Verified 10/04/23 13:07) Itching tramadol Allergy (Intermediate, Verified 10/04/23 13:07) Itching Home Medications: Metoprolol Tartrate 25 mg [Lopressor 25MG Tab] 25 mg PO HS 01/17/15 [History] Omeprazole 20 MG [Prilosec 20 mg] 40 mg PO DAILY 01/17/15 [History] Diclofenac Sodium Gel [Voltaren GEL] 1 applic TOP BID 04/17/18 [History] Insulin Glargine,Hum.rec.anlog [Basaglar Kwikpen U-100] 50 unit SQ BID 10/26/21 [History] PARoxetine HCL [Paroxetine HCl] 10 mg PO HS 10/26/21 [History] Ropinirole HCl 2 mg PO HS 10/26/21 [History] Temazepam 15 mg [Restoril 15 MG] 15 mg PO HS 10/26/21 [History] Naproxen 500 mg [Naprosyn 500 MG] 500 mg PO BIDPRN PRN 01/16/23 [History] Rosuvastatin Calcium 5 mg PO HS 01/16/23 [History] Tirzepatide [Mounjaro] 2.5 mg SQ WEEKLY 01/16/23 [History] Hx Tetanus, Diphtheria Vaccination/Date Given: Yes Hx Influenza Vaccination/Date Given: No Hx Pneumococcal Vaccination/Date Given: No Travel Risk - International Travel Have you traveled outside of the country in past 3 weeks: No - Coronavirus Screening Are you exhibiting any of the following symptoms?: Yes Symptoms: Vomiting/Diarrhea - Vaccine Status Have you recieved a Covid-19 vaccination: Yes 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 - Review of Systems Constitutional: No Symptoms Eyes: No Symptoms Ears, Nose, & Throat: No Symptoms Respiratory: No Symptoms Cardiac: No Symptoms Abdominal/Gastrointestinal: Abdominal Pain, Nausea, Vomiting, Diarrhea, Appetite Changes Genitourinary Symptoms: No Symptoms Musculoskeletal: No Symptoms Skin: No Symptoms Neurological: No Symptoms Psychological: No Symptoms Endocrine: No Symptoms Hematologic/Lymphatic: No Symptoms Immunological/Allergic: No Symptoms All Other Systems: Reviewed and Negative - Past Medical History Pertinent Past Medical History: Yes Neurological History: No Pertinent History ENT History: No Pertinent History Cardiac History: High Cholesterol, Hypertension Respiratory History: No Pertinent History Endocrine Medical History: Diabetes Type II Musculoskeletal History: Degenerative Disk Disease GI Medical History: GERD, Gallbladder Disease History: Other Psycho-Social History: No Pertinent History Female Reproductive Disorders: No Pertinent History, Other Other Medical History: herniated disc lower back, steroid epidural inj for back pain in the past. Hx of frequent UTI's. - Past Surgical History Past Surgical History: Yes Neuro Surgical History: No Pertinent History Cardiac: Cardiac Catheterization Respiratory: No Pertinent History Gastrointestinal: Cholecystectomy Genitourinary: No Pertinent History Musculoskeletal: No Pertinent History Female Surgical History: Hysterectomy, Section, Tubal Ligation - Social History Smoking Status: Never smoker Exposure to second hand smoke: No Drug Use: none Patient Lives Alone: No Significant Family History: heart disease (father) - Nursing Vital Signs Nursing Vital Signs: Initial Vital Signs Pulse Rate 85 10/04/23 12:59 Respiratory Rate 18 10/04/23 12:59 Blood Pressure 210/103 10/04/23 12:59 O2 Sat by Pulse Oximetry 97 10/04/23 12:59 Pain Scale Pain Intensity 0 - Physical Exam General Appearance: no apparent distress, alert, anxiety, obese Eye Exam: PERRL/EOMI, eyes nml inspection Ears, Nose, Throat Exam: normal ENT inspection, moist mucous membranes Neck Exam: normal inspection, non-tender, supple, full range of motion Respiratory Exam: normal breath sounds, lungs clear, airway intact, No chest tenderness, No respiratory distress Cardiovascular Exam: regular rate/rhythm, normal heart sounds, normal peripheral pulses Gastrointestinal/Abdomen Exam: soft, normal bowel sounds, tenderness (Right lower quadrant to palpation), guarding Pelvic Exam: not done Rectal Exam: not done Back Exam: normal inspection, normal range of motion, No CVA tenderness, No vertebral tenderness Extremity Exam: normal inspection, normal range of motion, pelvis stable Neurologic Exam: alert, oriented x 3, 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, 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, normal mood/affect, nml cerebellar function, nml station & gait, sensation nml Skin Exam: normal color, warm, dry Lymphatic Exam: No adenopathy SpO2 Interpretation: normal O2 Delivery: Room Air - Course Nursing assessment & vital signs reviewed: Yes Ordered Tests: Active Orders 24 hr Category Date Time Status IV Insertion STAT Care 10/04/23 13:09 Active ABDOMEN AND PELVIS W/0 CONTRAS [CT] Stat Exams 10/04/23 13:09 Completed AMYLASE Stat Lab 10/04/23 13:00 Completed CBC W DIFF Stat Lab 10/04/23 13:00 Completed CMP Stat Lab 10/04/23 13:00 Completed LIPASE Stat Lab 10/04/23 13:00 Completed MONO SCREEN Stat Lab 10/04/23 Completed UA W/RFX UR CULTURE Stat Lab 10/04/23 13:13 Completed Medication Summary Discontinued Medications Generic Name Dose Route Start Last Admin Trade Name Freq PRN Reason Stop Dose Admin Hydromorphone HCl 1 mg 10/04/23 13:09 10/04/23 13:16 Hydromorphone 1 Mg/1ml Inj IV 10/04/23 13:10 1 mg STAT ONE Administration Hydromorphone HCl Confirm 10/04/23 13:13 Hydromorphone 1 Mg/1ml Inj Administered 10/04/23 13:14 Dose 1 mg .ROUTE .STK-MED ONE Hydromorphone HCl 1 mg 10/04/23 14:10 10/04/23 14:19 Hydromorphone 1 Mg/1ml Inj IV 10/04/23 14:11 1 mg STAT ONE Administration Hydromorphone HCl Confirm 10/04/23 14:17 Hydromorphone 1 Mg/1ml Inj Administered 10/04/23 14:18 Dose 1 mg .ROUTE .STK-MED ONE Sodium Chloride 1,000 mls @ 999 mls/hr 10/04/23 13:09 10/04/23 14:17 Sodium Chloride 0.9% 1000 Ml IV 10/04/23 14:09 Infused .Q1H1M STA Infusion Sodium Chloride Confirm 10/04/23 13:13 Sodium Chloride 0.9% 1000 Ml Administered 10/04/23 13:14 Dose 1,000 mls @ ud .ROUTE .STK-MED ONE Ketorolac Tromethamine 30 mg 10/04/23 14:25 10/04/23 14:50 Ketorolac Tromethamine 30 Mg/Ml Inj IV 10/04/23 14:26 30 mg STAT ONE Administration Ketorolac Tromethamine Confirm 10/04/23 14:44 Ketorolac Tromethamine 30 Mg/Ml Inj Administered 10/04/23 14:45 Dose 30 mg .ROUTE .STK-MED ONE Ondansetron HCl 4 mg 10/04/23 13:09 10/04/23 13:16 Ondansetron Hcl 4 Mg/2 Ml Vial IV 10/04/23 13:10 4 mg STAT ONE Administration Ondansetron HCl Confirm 10/04/23 13:13 Ondansetron Hcl 4 Mg/2 Ml Vial Administered 10/04/23 13:14 Dose 4 mg .ROUTE .STK-MED ONE Prochlorperazine Edisylate 5 mg 10/04/23 14:10 10/04/23 14:19 Prochlorperazine Edisylate 10 Mg/2 Ml Vial IV 10/04/23 14:11 5 mg STAT ONE Administration Prochlorperazine Edisylate Confirm 10/04/23 14:17 Prochlorperazine Edisylate 10 Mg/2 Ml Vial Administered 10/04/23 14:18 Dose 10 mg .ROUTE .STK-MED ONE Lab/Rad Data: Laboratory Result Diagrams 10/04/23 13:00 10/04/23 13:00 Laboratory Results 10/04/23 10/04/23 10/04/23 Range/Units Unknown 13:35 13:13 WBC (4.0-10.5) x10^3/uL RBC (4.1-5.4) x10^6/uL Hgb (12.0-16.0) g/dL Hct (35-47) % MCV (78-100) fL MCH (26-32) pg MCHC (32-36) g/dL RDW (11.5-14.0) % Plt Count (150-450) x10^3/uL MPV (7.5-11.0) fL Gran % (36.0-66.0) % Immature Gran % (Auto) (0.00-0.4) % Nucleat RBC Rel Count (0.00-0.1) % Eos # (Auto) (0-0.5) x10^3/uL Immature Gran # (Auto) (0.00-0.03) x10^3u/L Absolute Lymphs (auto) (1.0-4.6) x10^3/uL Absolute Monos (auto) (0.0-1.3) x10^3/uL Absolute Nucleated RBC (0.00-0.01) x10^3u/L Lymphocytes % (24.0-44.0) % Monocytes % (0.0-12.0) % Eosinophils % (0.00-5.0) % Basophils % (0.0-0.4) % Absolute Granulocytes (1.4-6.9) x10^3/uL Basophils # (0-0.4) x10^3/uL Sodium (137-145) mmol/L Potassium (3.5-5.1) mmol/L Chloride (98-107) mmol/L Carbon Dioxide (22-30) mmol/L Anion Gap (5-15) MEQ/L BUN (7-17) mg/dL Creatinine (0.52-1.04) mg/dL Estimated GFR ML/MIN Glucose (74-106) mg/dL Calcium (8.4-10.2) mg/dL Total Bilirubin (0.2-1.3) mg/dL AST (14-36) U/L ALT (0-35) U/L Alkaline Phosphatase (38-126) U/L Serum Total Protein (6.3-8.2) g/dL Albumin (3.5-5.0) g/dL Amylase (30-110) U/L Lipase (23-300) U/L Urine Color Yellow (Yellow) Urine Appearance Clear (Clear) Urine pH 8.0 (4.6-8.0) Ur Specific [place] 1.020 (1.005-1.030) Urine Protein Negative (Negative) Urine Glucose (UA) Negative (Negative) mg/dL Urine Ketones Negative (Negative) Urine Blood Negative (Negative) Urine Nitrite Negative (Negative) Urine Bilirubin Negative (Negative) Urine Urobilinogen 0.2 (0.2) mg/dL Ur Leukocyte Esterase Negative (Negative) U Hyaline Cast (Auto) NONE SEEN (0-2) /LPF Urine Microscopic RBC 0-2 (0-5) /HPF Urine Microscopic WBC 0-2 (0-5) /HPF Ur Epithelial Cells Rare (None Seen) /HPF Urine Bacteria None Seen (None Seen) /HPF Urine Culture Reflexed NO (NO) Monoscreen NEGATIVE (NEGATIVE) Influenza Type A Ag NEGATIVE (NEGATIVE) Influenza Type B Ag NEGATIVE (NEGATIVE) RSV (PCR) NEGATIVE (NEGATIVE) SARS-CoV-2 (PCR) NEGATIVE (NEGATIVE) 10/04/23 10/04/23 Range/Units 13:00 13:00 WBC 10.3 (4.0-10.5) x10^3/uL RBC 5.84 H (4.1-5.4) x10^6/uL Hgb 15.3 (12.0-16.0) g/dL Hct 48.8 H (35-47) % MCV 83.6 (78-100) fL MCH 26.2 (26-32) pg MCHC 31.4 L (32-36) g/dL RDW 13.3 (11.5-14.0) % Plt Count 372 (150-450) x10^3/uL MPV 11.1 H (7.5-11.0) fL Gran % 59.3 (36.0-66.0) % Immature Gran % (Auto) 0.4 (0.00-0.4) % Nucleat RBC Rel Count 0.0 (0.00-0.1) % Eos # (Auto) 0.18 (0-0.5) x10^3/uL Immature Gran # (Auto) 0.04 H (0.00-0.03) x10^3u/L Absolute Lymphs (auto) 3.29 (1.0-4.6) x10^3/uL Absolute Monos (auto) 0.57 (0.0-1.3) x10^3/uL Absolute Nucleated RBC 0.00 (0.00-0.01) x10^3u/L Lymphocytes % 32.1 (24.0-44.0) % Monocytes % 5.6 (0.0-12.0) % Eosinophils % 1.8 (0.00-5.0) % Basophils % 0.8 (0.0-0.4) % Absolute Granulocytes 6.09 (1.4-6.9) x10^3/uL Basophils # 0.08 (0-0.4) x10^3/uL Sodium 140 (137-145) mmol/L Potassium 4.3 (3.5-5.1) mmol/L Chloride 104 (98-107) mmol/L Carbon Dioxide 30 (22-30) mmol/L Anion Gap 10.8 (5-15) MEQ/L BUN 12 (7-17) mg/dL Creatinine 0.62 (0.52-1.04) mg/dL Estimated GFR 106.4 ML/MIN Glucose 92 (74-106) mg/dL Calcium 9.5 (8.4-10.2) mg/dL Total Bilirubin 0.70 (0.2-1.3) mg/dL AST 27 (14-36) U/L ALT 24 (0-35) U/L Alkaline Phosphatase 92 (38-126) U/L Serum Total Protein 7.3 (6.3-8.2) g/dL Albumin 4.2 (3.5-5.0) g/dL Amylase 31 (30-110) U/L Lipase 68 (23-300) U/L Urine Color (Yellow) Urine Appearance (Clear) Urine pH (4.6-8.0) Ur Specific [place] (1.005-1.030) Urine Protein (Negative) Urine Glucose (UA) (Negative) mg/dL Urine Ketones (Negative) Urine Blood (Negative) Urine Nitrite (Negative) Urine Bilirubin (Negative) Urine Urobilinogen (0.2) mg/dL Ur Leukocyte Esterase (Negative) U Hyaline Cast (Auto) (0-2) /LPF Urine Microscopic RBC (0-5) /HPF Urine Microscopic WBC (0-5) /HPF Ur Epithelial Cells (None Seen) /HPF Urine Bacteria (None Seen) /HPF Urine Culture Reflexed (NO) Monoscreen (NEGATIVE) Influenza Type A Ag (NEGATIVE) Influenza Type B Ag (NEGATIVE) RSV (PCR) (NEGATIVE) SARS-CoV-2 (PCR) (NEGATIVE) - Progress Progress: improved, pain not gone completely, re-examined Progress Note: 10/04/23 13:27 This patient's medical issue is 1 of moderate complexity. The level of complexity in the workup performed is based on review of the patient's past medical history, review of the patient's medication list, reviewed patient's drug allergy list, history of present illness and physical findings on examination. The workup in this patient includes placement of intravenous line, infusion of normal saline solution, infusion of 4 mg and intravenous Zofran, infusion of 1 mg intravenous Dilaudid, amylase, lipase, CBC, CMP, urinalysis, CT scan of the abdomen pelvis without contrast. 10/04/23 14:23 CT scan of the abdomen pelvis without contrast was interpreted by the radiologist and I reviewed the impression. Impression is normal appendix. No free air no free fluid. There is minimal aortic calcifications without abdominal aortic aneurysm. There is minimal to moderate degenerative changes in the thoracolumbar spine. I reviewed the results of the CT scan findings with the patient and her significant other. 10/04/23 14:24 10/04/23 15:29 I interpreted the patient's laboratory data results. She does not have any acute, emergent medical issue based on her labs. Reexamination of the patient shows that her pain has significantly improved. She does not want any narcotic prescriptions. We will remotely send a prescription of Zofran to her pharmacy Counseled pt/family regarding: lab results, diagnosis, need for follow-up, rad results Medical Desision Making - Independent Historian Additional History obtained from: Spouse - Diagnostic Testing Diagnostic test were ordered, analyzed, and reviewed by me: Yes Radiological Interpretation: Reviewed by me, Teleradiologist Report - Risk of complications The pt has a mod risk of morbidity or mortality based on: Need for prescription drug management - Departure Departure Disposition: Home Clinical Impression: Abdominal pain, Vomiting and diarrhea Condition: Stable Critical Care Time: No Referrals: GWYN JUAREZ MD [Primary Care Provider] - Follow up/PCP as directed Additional Instructions: Drink plenty of clear liquids before advancing your diet. Call your primary care provider today to make arrangements for follow-up appointment in the next 3 to 5 days. Avoid fatty greasy spicy foods Prescriptions: Ondansetron ODT 4 MG [Zofran Odt 4 mg] 4 mg PO Q6H PRN PRN #10 tablet PRN Reason: Vomiting
[2023-10-04] MEDS ORDERED: Hydromorphone 1 mg/ml Injection IV ONE ×2 (13:09→14:10)
[2023-10-04] MEDS ORDERED: Zofran 4 MG/2 ML VIAL IV ONE (13:09)
[2023-10-04] MEDS ORDERED: Sodium Chloride 0.9% 1000 ML 1,000 ML IV STA (13:09)
[2023-10-04] MEDS ORDERED: Sodium Chloride 0.9% 1000 ML 1,000 ML ONE (13:13)
[2023-10-04] MEDS ORDERED: Zofran 4 MG/2 ML VIAL ONE (13:13)
[2023-10-04] MEDS ORDERED: Hydromorphone 1 mg/ml Injection ONE ×2 (13:13→14:17)
[2023-10-04 13:21] LABS: Absolute Neutrophil Ct (ANC) 6.09 x10^3/uL (1.4-6.9); BASOPHIL % 0.8 % (0.0-0.4); Basophil (Absolute #) 0.08 x10^3/uL (0-0.4); Eosinophil % 1.8 % (0.00-5.0); Eosinophil (Absolute #) 0.18 x10^3/uL (0-0.5); Hematocrit 48.8 % (35-47); Hemoglobin 15.3 g/dL (12.0-16.0); IMMATURE GRAN # 0.04 x10^3u/L (0.00-0.03); IMMATURE GRAN % 0.4 % (0.00-0.4); Lymphocyte (Absolute #) 3.29 x10^3/uL (1.0-4.6); Lymphocytes % 32.1 % (24.0-44.0); Mean Cell Volume 83.6 fL (78-100); Mean Corpuscular Hemoglobin 26.2 pg (26-32); Mean Corpuscular Hgb Concent. 31.4 g/dL (32-36); Mean Platelet Volume 11.1 fL (7.5-11.0); Monocyte (Absolute #) 0.57 x10^3/uL (0.0-1.3); Monocytes % 5.6 % (0.0-12.0); Neutrophil % 59.3 % (36.0-66.0); Platelet Count 372 x10^3/uL (150-450); Red Blood Count 5.84 x10^6/uL (4.1-5.4); Red Cell Distribution Width 13.3 % (11.5-14.0); White Blood Count 10.3 x10^3/uL (4.0-10.5)
[2023-10-04 13:27] LABS: ALBUMIN 4.2 g/dL (3.5-5.0); ANION GAP 10.8 MEQ/L (5-15); BILIRUBIN,TOTAL 0.7 mg/dL (0.2-1.3); Calcium 9.5 mg/dL (8.4-10.2); Creatinine 1 0.62 mg/dL (0.52-1.04); EST GLOMERULAR FILTRATION RATE 106.4 ML/MIN; Potassium 4.3 mmol/L (3.5-5.1); Total Protein 7.3 g/dL (6.3-8.2)
[2023-10-04] MEDS ORDERED: Compazine 10 MG/2 ML IV ONE (14:10)
--- NOTE | 2023-10-04 14:13 | XRAY ---
Indication: Right lower quadrant pain. Nausea and vomiting. Multiple contiguous axial images obtained through the abdomen and pelvis without contrast. Comparison: June 15, 2019 Lung bases clear. Heart not enlarged. Stomach is again distended with food/fluid. Noncontrasted stomach and bowel loops appear nonobstructed again with normal appendix. Again diffuse fatty liver, cholecystectomy, and hysterectomy. No free fluid/air. Remaining liver, pancreas, spleen, adrenal glands, kidneys, ureters, and bladder are unremarkable for noncontrast exam. There are minimal aortic calcifications without AAA. Osseous structures intact again with mild/moderate degenerative changes throughout the thoracolumbar spine and mild levoscoliosis centered at L4. No ventral or inguinal hernias. Impression: 1. Again chronic findings including fatty liver, minimal arteriosclerotic disease, and chronic bony findings. 2. Remaining CT abdomen/pelvis without contrast exam continues to be normal.
[2023-10-04] MEDS ORDERED: Compazine 10 MG/2 ML ONE (14:17)
[2023-10-04 14:18] LABS: INFLUENZA A NEGATIVE (NEGATIVE); INFLUENZA B NEGATIVE (NEGATIVE); RESPIRATORY SYNCTIAL VIRUS NEGATIVE (NEGATIVE); SARS-CoV-2 Xpert Express NEGATIVE (NEGATIVE)
[2023-10-04 14:18] LABS: Appearance Clear (Clear); Bacteria None Seen /HPF (None Seen); Bilirubin Negative (Negative); Blood Negative (Negative); Epithelial Cells Rare /HPF (None Seen); Glucose, Urine Negative (Negative); Hyaline Casts NONE SEEN /LPF (0-2); Ketones Negative (Negative); Leukocyte Esterase Negative (Negative); Nitrite Negative (Negative); Protein,Urine Dip Negative (Negative); RBC 0-2 /HPF (0-5); Urobilinogen 0.2 mg/dL (0.2); WBC 0-2 /HPF (0-5)
[2023-10-04 14:19] LABS: ADD URINE CULTURE? NO (NO)
[2023-10-04] MEDS ORDERED: TORAdol 30 mg Injection IV ONE (14:25)
[2023-10-04] MEDS ORDERED: TORAdol 30 mg Injection ONE (14:44)
[2023-10-04 15:17] VITALS: O2SAT 94
[2023-10-04 15:40] VITALS: BP 142/74; PULSE 80; RESP 16
== END 2023-10-04 15:43 | disposition home or self-care (01) ==
LOC: ED 12:45
DX: R10.31 Right lower quadrant pain (principal); R11.2 Nausea with vomiting, unspecified; R19.7 Diarrhea, unspecified; E11.9 Type 2 diabetes mellitus without complications; E78.5 Hyperlipidemia, unspecified; I10 Essential (primary) hypertension; Z79.4 Long term (current) use of insulin; Z79.85 Long-term (current) use of injectable non-insulin antidiabetic drugs; Z79.899 Other long term (current) drug therapy
CPT/HCPCS: 0241U; 36000; 36415; 74176; 80053; 81001; 82150; 83690; 85025; 86308; 96360; 96374; 96375; 96376; 99284; J1170; J1885; J2405